=== PATIENT | female | born 1950 | race Caucasian/White ===

== ENCOUNTER 2017-07-17 07:33 | Day surgery (SDC) | payer MEDICARE, OTHER, SELFPAY ==
[2017-07-17] VITALS (7 sets, daily range): BP systolic 95–133; BP diastolic 59–76; PULSE 70–99; RESP 16–18; TEMP 36.8–36.9; O2SAT 92–100; BMI 25.4
--- NOTE | 2017-07-17 08:47 | PCM.HP.STD ---
Problem List (1) Screening for intestinal cancer Status: Acute History of Present Illness Date of Admission: 07/17/17 The patient is a 67 year old F screening for intestinal cancer. She has a history of vasovagal syncope. In fact she fainted this morning when the IV was being placed. She denies chest pain or shortness of breath. She denies abdominal pain no bright red blood per rectum or melena. Her most recent colonoscopy was approximately 10 years ago. He has not had any unusual weight loss. Past Medical History Allergies bupropion [From Wellbutrin] Allergy (Verified 07/16/17 15:50) Other MINI SEIZURES, WIEGHT LOSS, ANXIETY Home Medications: Ambulatory Orders Medication Instructions Recorded Ascorbic Acid [Vitamin C] 500 mg PO DAILY 07/16/17 Citalopram [Celexa] 20 mg PO DAILY 07/16/17 Lamotrigine [Lamictal Xr] 100 mg PO DAILY 07/16/17 Melatonin 5 mg PO QHS 07/16/17 Smoking Status: Former smoker Review of Systems Constitutional: Denies: Anorexia Eyes: Denies: Blurred vision HEENT: Denies: Difficulty Hearing Cardiovascular: Denies: Chest Pain Respiratory: Denies: Cough Gastrointestinal: Denies: Abdominal Pain Genitourinary: Denies: Dysuria Musculoskeletal: Denies: Leg Pain Neurological: Reports: - - Vasovagal syncope very common VTE Information - Inpt Only VTE Present on Admission: No Patient Problems: Active and Suspected Problems Screening for intestinal cancer (Acute) - Physical Exam General: Alert, Oriented x3 HEENT: Atraumatic Oral: Moist Mucosa Neck: Supple Lungs: Clear to auscultation Cardiovascular: Regular rate Abdomen: Bowel Sounds Present, Non Tender Extremities: No clubbing Musculoskeletal: No Tenderness to Palpation of Joints or Extremities Neurological: Cranial nerves II-XII grossly intact Vital Signs Temp Pulse Resp BP Pulse Ox 98.2 F 99 18 133/76 H 100 07/17/17 07:49 07/17/17 07:49 07/17/17 07:49 07/17/17 07:49 07/17/17 07:49 Oxygen Delivery Method Room Air Weight: 130 lb Body Mass Index (BMI) 25.4 Assessment/Plan Active and Suspected Problems Screening for intestinal cancer (Acute) I have discussed with the patient plans for a colonoscopy with possible biopsy or polypectomy is indicated. She is aware of the technique, benefits, risks, alternatives. We will proceed at her discretion. Capo Mcneal M.D., F.A.C.S.
--- NOTE | 2017-07-17 09:12 | PCM.OPRPT ---
Problem List (1) Screening for intestinal cancer Status: Acute Report of Operation Date of Procedure: 07/17/17 Pre-Operative Diagnosis: Screening for intestinal cancer Post-Operative Diagnosis: Normal colonoscopy Surgery/Procedure Performed:: Colonoscopy Description of Surgical Findings:: Time out and informed consent was obtained. Because of the patient's vasovagal history she was provided with extra IV fluid throughout the procedure totaling 2 L. Timeout and informed consent was obtained. 100 mg of Demerol and 3.5 mg of Versed were given as intravenous sedation. Digital rectal exam performed. Some mild hemorrhoidal changes noted. Normal tone. No mass lesions. Flexible colonoscope inserted the rectum advanced through a tortuous sigmoid colon. With transabdominal pressure after unwinding the sigmoid loop I was able to get the scope to go to the ascending colon and then gently to the cecum. Bowel prep was very good. The cecum ileocecal valve area was nicely achieved. The scope was carefully withdrawn from the ascending colon transverse colon descending colon and sigmoid colon. No mucosal abnormalities were identified. The scope was retroflexed within the rectum. The mild hemorrhoidal changes noted. Excess fluid and air was aspirated free. The procedure was completed. The patient tolerated the procedure well. Vital signs remained steady throughout. Impression Normal colonoscopy Next screening exam recommended in 10 years. Cc: Dr. Pelayo Medications given at 0853. Procedure started at 0856. Cecum reached at 0903.3. Procedure completed at 0909.46 Capo Mcneal M.D., F.A.C.S. Type of Anesthesia:: IV Sedation
== END 2017-07-17 11:02 | disposition home or self-care (01) ==
LOC: EN 07:36 → AC 07:36
PROVIDERS: Family Provider Family Medicine; PCP Family Medicine; Visit Provider Surgery
PROC: 0DJD8ZZ Inspection of Lower Intestinal Tract, Via Natural or Artificial Opening Endoscopic (ICD-10-PCS; CPT 45378; principal; 2017-07-17 08:40)
DX: Z12.11 Encounter for screening for malignant neoplasm of colon (principal); R55 Syncope and collapse; Z79.899 Other long term (current) drug therapy; Z87.891 Personal history of nicotine dependence
CPT/HCPCS: G0121; J7120

== ENCOUNTER 2018-04-20 05:39 | Day surgery (SDC) | payer MEDICARE, OTHER, SELFPAY ==
[2018-04-20] VITALS (10 sets, daily range): BP systolic 94–149; BP diastolic 61–106; PULSE 62–67; RESP 14–16; TEMP 36–36.3; O2SAT 94–100; BMI 26.2
--- NOTE | 2018-04-20 | IMM_PTH ---
PATIENT: BRANDEN KATE LOC: EN U#:[id number] AGE/SX: 68/F ROOM: RE04/20/[address]: Dr. Capo Mcneal MD : 1950 BED: DIS: 04/20/2018 SPEC #: [id number] RECD: 04/21/18 11:17 STATUS: CARLOS REQ #: [id number] JASBIR: 04/20/18 00:[address]: Capo Mcneal DEPT: IMMUNOHISTOCHEMISTRY RECD BY: Luana Malloy ENTERED: 04/21/18 11:17 SP TYPE: IMMUNO OTHR DR: Dr. Renate Pelayo MD Tissues: A - Stomach, NOS Procedures: H Pylori (initial) PHYSICIAN & INSTITUTION [place] [id number] SPECIMEN INFORMATION: Tissue Source: A - Antral biopsy Clinical Info: GERD, esophagitis Specimen Number: [id number] CPT code: 83582 METHODOLOGY: Deparaffinized sections of prefer/formalin-fixed tissue or PAP/DQ stained slides are incubated with monoclonal/polyclonal antibodies/oligonucleotide probes. Localization is made via biotin free immunoperoxidase method. Appropriate controls are performed and reacted as expected. Results on target cell population are indicated in the following table: RESULTS: ANTIBODY / CLONE RESULT Block A H Pylori (polyclonal) Negative These tests were developed and their performance characteristics determined by [facility]. They may not have been cleared or approved by the U.S. Food and Drug Administration. The FDA has determined that such clearance or approval is not necessary. INTERPRETATION: A. Antral biopsy: Negative for Helicobacter pylori organisms. SJ:maranda 04/21/18
--- NOTE | 2018-04-20 | GASB_PTH ---
PATIENT: BRANDEN KATE LOC: EN U#:[id number] AGE/SX: 68/F ROOM: RE04/20/[address]: Dr. Capo Mcneal MD : 1950 BED: DIS: 04/20/2018 SPEC #: [id number] RECD: 04/20/18 11:08 STATUS: CARLOS JELENA #: [id number] JASBIR: 04/20/18 00:[address]: Capo Mcneal DEPT: SURGICAL PATHOLOGY RECD BY: Soy Echols ENTERED: 04/20/18 11:09 SP TYPE: Gastric Bx OTHR DR: Dr. Renate Pelayo MD Tissues: A - Gastric mucous membrane B - Esophageal mucous membrane Procedures: Surgery Specimen Level IV HEADER OPERATION: EGD - PH probe (MOD) PRE-OP DIAGNOSIS: GERD, esophagitis TISSUE SUBMITTED: A - Antral biopsy for histo and H. pylori, B - Distal esophagus biopsy MICROSCOPIC DIAGNOSIS A. Antral biopsy: Mild gastritis. See microscopic description and comment. B. Distal esophageal biopsy: Fragments of squamous mucosa with chronic inflammation. CHARO:carole 04/21/18 COMMENT A. The results of immunohistochemistry for Helicobacter pylori will be reported separately ([id number]). MICROSCOPIC DESCRIPTION Slides are reviewed. A. The specimen shows fragments of gastric mucosa with chronic inflammatory cell infiltrates in the lamina propria consisting of lymphocytes and plasma cells, consistent with mild chronic gastritis. GROSS DESCRIPTION A - Received in fixative is one container labeled with the patient's name and designated antral biopsy. The specimen consists of one irregular fragment of light quinn soft tissue that measures 0.4 x 0.3 x 0.1 cm. The specimen is totally submitted in one cassette. B - Received in fixative is one container labeled with the patient's name and designated distal esophageal biopsy. The specimen consists of multiple irregular fragments of light quinn soft tissue that in aggregate measure 0.8 x 0.2 x 0.1 cm. The specimen is totally submitted in one cassette. / CHARO:carole 04/20/18 TC:3 CPT: 44391 x2
--- NOTE | 2018-04-20 07:40 | OP.ENDO_ITS ---
Patient Name: Allie Thomason Procedure Date: 04/20/2018 7:12 AM Date of : 1950 Age: 68 Procedure: Upper GI endoscopy Indications: Suspected gastro-esophageal reflux disease Providers: Capo Mcneal MD Referring MD: Capo Mcneal MD Medicines: Midazolam 3 mg IV, Meperidine 75 mg IV Complications: No immediate complications. Procedure: Pre-Anesthesia Assessment: - Prior to the procedure, a History and Physical was performed, and patient medications and allergies were reviewed. The patient's tolerance of previous anesthesia was also reviewed. The risks and benefits of the procedure and the sedation options and risks were discussed with the patient. All questions were answered, and informed consent was obtained. Prior Anticoagulants: The patient has taken no previous anticoagulant or antiplatelet agents. ASA Grade Assessment: II - A patient with mild systemic disease. After reviewing the risks and benefits, the patient was deemed in satisfactory condition to undergo the procedure. After obtaining informed consent, the endoscope was passed under direct vision. Throughout the procedure, the patient's blood pressure, pulse, and oxygen saturations were monitored continuously. The gastroscope was introduced through the mouth, and advanced to the second part of duodenum. The upper GI endoscopy was accomplished without difficulty. The patient tolerated the procedure well. Moderate Sedation: Moderate (conscious) sedation was personally administered by the endoscopist. The following parameters were monitored: oxygen saturation, heart rate, blood pressure, and response to care. Total physician intraservice time was 15 minutes. Scope In: 7:22:03 AM Scope Out: 7:31:25 AM Total Procedure Duration Time 0 hours 9 minutes 22 seconds Findings: LA Grade A (one or more mucosal breaks less than 5 mm, not extending between tops of 2 mucosal folds) esophagitis with no bleeding was found 35 cm from the incisors. Biopsies were taken with a cold forceps for histology. The Z-line was regular and was found 35 cm from the incisors. A medium-sized hiatal hernia was present. The entire examined stomach was normal. Biopsies were taken with a cold forceps for histology. The examined duodenum was normal. A medium-sized hiatal hernia was present. The RITTER capsule with delivery system was introduced through the mouth and advanced into the esophagus, such that the RITTER pH capsule was positioned 29 cm from the incisors, which was 6 cm proximal to the GE junction. The RITTER pH capsule was then deployed and attached to the esophageal mucosa. The delivery system was then withdrawn. Endoscopy was utilized for probe placement and diagnostic evaluation. Impression: - LA Grade A reflux esophagitis. Biopsied. - Z-line regular, 35 cm from the incisors Successfully placed Ritter probe. - Medium-sized hiatal hernia. - Normal stomach. Biopsied at the antrum - Normal examined duodenum. Recommendation: - Discharge patient to home. - Resume previous diet. - Continue present medications. - Return to my office in 1 week. Procedure Code(s): --- Professional --- 51734, Esophagogastroduodenoscopy, flexible, transoral; with biopsy, single or multiple 78160, 59, Moderate sedation services provided by the same physician or other qualified health resident care technician performing the diagnostic or therapeutic service that the sedation supports, requiring the presence of an independent trained observer to assist in the monitoring of the patient's level of consciousness and physiological status; initial 15 minutes of intraservice time, patient age 5 years or older Diagnosis Code(s): --- Professional --- K21.0, Gastro-esophageal reflux disease with esophagitis K44.9, Diaphragmatic hernia without obstruction or gangrene CPT copyright 2017 [employer]. All rights reserved. The codes documented in this report are preliminary and upon sports umpire review may be revised to meet current compliance requirements. Capo Mcneal MD 04/20/2018 7:39:30 AM This report has been signed electronically. Number of Addenda: 0 Note Initiated On: 04/20/2018 7:12 AM
== END 2018-04-20 08:45 | disposition home or self-care (01) ==
LOC: EN 05:40 → AC 05:41
PROVIDERS: Family Provider Family Medicine; PCP Family Medicine; Referring Provider Surgery; Visit Provider Surgery
PROC: (CPT 43235; principal; 2018-04-20 06:45)
DX: K21.0 Gastro-esophageal reflux disease with esophagitis (principal); K29.70 Gastritis, unspecified, without bleeding; K44.9 Diaphragmatic hernia without obstruction or gangrene; F41.9 Anxiety disorder, unspecified; F32.9 Major depressive disorder, single episode, unspecified; M19.90 Unspecified osteoarthritis, unspecified site; Z87.19 Personal history of other diseases of the digestive system; Z78.0 Asymptomatic menopausal state; Z79.899 Other long term (current) drug therapy; Z87.891 Personal history of nicotine dependence
CPT/HCPCS: 43239; 91035; 88305; 88342; 99152; 99153; J7040; J7120

== ENCOUNTER 2018-05-11 07:55 | Day surgery (SDC) | payer MEDICARE, OTHER, SELFPAY ==
[2018-05-11 09:08] VITALS: BP 139/92; PULSE 71; RESP 16; O2SAT 100
== END 2018-05-11 09:03 | disposition home or self-care (01) ==
LOC: EN 07:56
PROVIDERS: Family Provider Family Medicine; PCP Family Medicine; Referring Provider Surgery; Visit Provider Surgery
PROC: F00ZJWZ Instrumental Swallowing and Oral Function Assessment using Swallowing Equipment (ICD-10-PCS; CPT 43235; principal; 2018-05-11 07:55)
DX: K21.9 Gastro-esophageal reflux disease without esophagitis (principal)
CPT/HCPCS: 91010; 91013

== ENCOUNTER 2018-07-12 10:00 | Observation (INO) | payer MEDICARE, OTHER, SELFPAY ==
[2018-07-06 13:14] VITALS: BMI 26.5
--- NOTE | 2018-07-06 15:18 | EKG12_ITS ---
Test Reason : PRE OP Blood Pressure : / mmHG Vent. Rate : 072 BPM Atrial Rate : 072 BPM P-R Int : 156 ms QRS Dur : 070 ms QT Int : 396 ms P-R-T Axes : 037 035 057 degrees QTc Int : 433 ms Normal sinus rhythm Normal ECG Confirmed by EDISON DELVALLE, SAUL ([id number]), content editor SHARLENE MELENDEZ ([id number]) on 07/07/2018 1:55:29 PM Referred By: Capo Mcneal Confirmed By:SAUL HOGAN MD
[2018-07-12] VITALS (15 sets, daily range): BP systolic 124–154; BP diastolic 80–103; PULSE 74–104; RESP 14–18; TEMP 35.8–37.1; O2SAT 92–98; BMI 26.7
--- NOTE | 2018-07-12 06:59 | DCINST_ITS ---
<Capo Mcneal - Last Filed: 07/12/18 06:58> Discharge Diet: Light diet - advance as tolerated - if you have questions about your diet instructions, please talk to you doctor. Discharge Activity: May Not Drive - for 3-5days or while taking narcotic pain medicine. May shower in (days): 1 Lifting Restrictions: 10 pounds Call your doctor if your incision/area has: Continuous Slow Oozing, Sudden Increased Bleeding, Increased Pain/ Swelling, Increased Redness, Foul Smelling Discharge Call your doctor if you observe: Fever of 101 or Higher Suture Line Care: Avoid Pulling/Pushing, Avoid Pinching/Bending Additional Dressing/Incision Instructions:: Change or remove dressing in 4 days. Leave steri-strips in place for 1 week. Allergies/Adverse Reactions: Allergies bupropion [From Wellbutrin] Adverse Reaction (Intermediate, Verified 07/06/18 14:26) tachycardia MINI SEIZURES, WIEGHT LOSS, ANXIETY Medications to take at Discharge multivitamin tablet 1 tab PO DAILY 03/31/18 Estradiol [Estrace Vaginal Cream] 1 gm VAGINAL Q7D 07/06/18 venlafaxine 37.5 mg tablet 37.5 mg PO DAILY tab 07/06/18 Orders to be completed after discharge: 12 Lead EKG [[facility]] Time Frame: 07/06/18, Facility: [facility], Location: Cardiovascular Services Primary Care Physician: Renate Pelayo MD [Primary Care Provider] - Test Results: Test results from this visit will be discussed in further detail at your follow- up appointment, if applicable. Please Follow Up With: Capo Mcneal MD - [phone] When: Call to make an appointment to be seen in about 10 days. <Bethany Meyer - Last Filed: 07/13/18 09:29> Test Results: Test results from this visit will be discussed in further detail at your follow- up appointment, if applicable.
[2018-07-12] MEDS: Cefazolin 2 GM in 0.9% Normal Saline 100 ML IV (07:18)
[2018-07-12] MEDS: Bupivacaine Mpf 0.5% 30 ML VIAL (10:02)
--- NOTE | 2018-07-12 10:04 | PCM.OPRPT ---
Problem List (1) GERD (gastroesophageal reflux disease) Status: Acute Qualifiers: Esophagitis presence: with esophagitis Qualified Code(s): K21.0 - Gastro-esophageal reflux disease with esophagitis Report of Operation Date of Procedure: 07/12/18 Pre-Operative Diagnosis: Hiatal hernia and gastroesophageal reflux disease with esophagitis Post-Operative Diagnosis: Same Surgery/Procedure Performed:: Laparoscopic repair of hiatal hernia with Nichole fundoplication. Intraoperative esophagogastroduodenoscopy Description of Surgical Findings:: Timeout and informed consent was obtained. 68-year-old female was taken to the operating room. Placed supine on the table. Underwent general endotracheal intubation anesthesia. She was then placed in low lithotomy position. Buttock roll was placed. The abdomen sterilely prepped and draped with ChloraPrep. Ioban drape was used to facilitate management of the drapes. The patient received 2 g of Ancef intravenously. Superior and slightly to the right umbilicus 0.5% Marcaine was instilled then using a 5 mm direct viewing Visiport access was gained to the abdomen. The abdomen was insufflated CO2 to a pressure of 10 mmHg pressure. The abdomen is inspected no evidence of any trocar injuries no evidence of any superficial abnormalities. Tell me trocar was placed in the left epigastric area 2 more 5 in the left lateral upper quadrant and additional 5 in the right mid clavicular line upper quadrant. Liver retractor was placed to the right sided port elevating the left lobe of the liver. The patient was placed in reverse Trendelenburg position. The epiphrenic ligament was identified. A scalpel was used to incise tissues overlying the epiphrenic ligament making sure that the peritoneum stayed intact with both the right and left stephan. Blunt dissection was used to identify the posterior aspect of the esophagus small hiatal hernia noted. The fundus of the stomach unfortunately was densely adherent to the spleen and to the left hemidiaphragm. This had to be tediously dissected free with blunt dissection and harmonic scalpel dissection in order to transect the short gastrics were appropriate. Having freed the stomach I could then retracted and identify the left stephan incise the tissue there. I then was able to get circumferential control of the esophagus placed a Lavonne drain. The posterior vagus nerve was protected with the esophagus and stomach. I then performed circumferential dissection into the mediastinum completely releasing the distal esophagus. There was a pigmented lymph node anteriorly. This is immediately adjacent to the esophagus I did not interfere with that location. I then with Harper scalpel dissection complete fraying of the lower 6-8 cm of esophagus. [place] that I had good mobilization. I then used 0 Ethibond sutures with Dacron pledgets and approximated the crura. 4 sutures were required. [place] that I had nice approximation but not too snug. That appeared to be nicely and intact. To have a good closure. I was then able to easily grasp the fundus of the stomach checked for tension and used a 0 Ethibond to do the apical suture which included the fundus of the stomach the epiphrenic ligament of the diaphragm the anterior wall of the esophagus and then the wrapped portion of the stomach. Good positioning was achieved securing that to the diaphragm into the esophagus. An additional suture was then used to finish the fundoplication with both pedroza of the stomach as well as the anterior wall of the esophagus. Good positioning was felt to been achieved hemostasis was nicely intact. I then placed a flexible gastroscope down the esophageal inlet. Carefully inspected the operative area water was instilled in the abdomen there was absolutely no air leak. The EG junction was now noted to be nicely below the level of the diaphragm. The wrap appeared to be nicely intact was able to retroflex the scope and image the quite nicely wrapped fundus. The remainder the stomach was noted to be quite appropriate again air leak was checked no evidence of any problems. Excess fluid and air was aspirated free of excess air from the stomach was aspirated free the scope was withdrawn. Trochars removed under visualization after the 10 mm trocar was closed with a [id number] suture of 0 Vicryl using a GraNee needle. The abdomen was allowed to deflate his CO2 skin edges approximated with interrupted 4 Monocryl subdermal stitches Steri-Strips Telfa and OpSite dressings applied. It is of note that all skin sites were anesthetized with 0.5% Marcaine and a total of 30 cc was used throughout the procedure. Specimens none. Drains none. Blood loss minimal. She tolerated the procedure well and was taken to the recovery area in satisfactory condition without apparent complication. Capo Mcneal M.D., F.A.C.S. Type of Anesthesia:: General Anesthesiologist: Jeff Bush
--- NOTE | 2018-07-12 10:12 | OP.PCM_ITS ---
Problem List (1) GERD (gastroesophageal reflux disease) Status: Acute Qualifiers: Esophagitis presence: with esophagitis Qualified Code(s): K21.0 - Gastro- esophageal reflux disease with esophagitis Report of Operation Date of Procedure: 07/12/18 Pre-Operative Diagnosis: Hiatal hernia and gastroesophageal reflux disease with esophagitis Post-Operative Diagnosis: Same Surgery/Procedure Performed:: Laparoscopic repair of hiatal hernia with Nichole fundoplication. Intraoperative esophagogastroduodenoscopy Description of Surgical Findings:: Timeout and informed consent was obtained. 68-year-old female was taken to the operating room. Placed supine on the table. Underwent general endotracheal intubation anesthesia. She was then placed in low lithotomy position. Buttock roll was placed. The abdomen sterilely prepped and draped with ChloraPrep. Ioban drape was used to facilitate management of the drapes. The patient r eceived 2 g of Ancef intravenously. Superior and slightly to the right umbilicus 0.5% Marcaine was instilled then using a 5 mm direct viewing Visiport access was gained to the abdomen. The abdomen was insufflated CO2 to a pressure of 10 mmHg pressure. The abdomen is inspected no evidence of any trocar injuries no evidence of any superficial abnormalities. Tell me trocar was placed in the left epigastric area 2 more 5 in the left lateral upper quadrant and additional 5 in the right mid clavicular line upper quadrant. Liver retractor was placed to the right sided port elevating the left lobe of the liver. The patient was placed in reverse Trendelenburg position. The epiphrenic ligament was identified. A scalpel was used to incise tissues overlying the epiphrenic ligament making sure that the peritoneum stayed intact with both the right and left stephan. Blunt dissection was used to identify the posterior aspect of the esophagus small hiatal hernia noted. The fundus of the stomach unfortunately was densely adherent to the spleen and to the left hemidiaphragm. This had to be tediously dissected free with blunt dissection and harmonic scalpel dissection in order to transect the short gastrics were appropriate. Having freed the stomach I could then retracted and identify the left stephan incise the tissue there. I then was able to get circumferential control of the esophagus placed a Lavonne drain. The posterior vagus nerve was protected with the esophagus and stomach. I then performed circumferential dissection into the mediastinum completely releasing the distal esophagus. There was a pigmented lymph node anteriorly. This is immediately adjacent to the esophagus I did not interfere with that location. I then with Harper scalpel dissection complete fraying of the lower 6-8 cm of esophagus. [place] that I had good mobilization. I then used 0 Ethibond sutures with Dacron pledgets and approximated the crura. 4 sutures were required. [place] that I had nice approximation but not too snug. That appeared to be nicely and intact. To have a good closure. I was then able to easily grasp the fundus of the stomach checked for tension and used a 0 Ethibond to do the apical suture which included the fundus of the stomach the epiphrenic ligament of the diaphragm the anterior wall of the esophagus and then the wrapped portion of the stomach. Good positioning was achieved securing that to the diaphragm into the esophagus. An additional suture was then used to finish the fundoplication with both pedroza of the stomach as well as the anterior wall of the esophagus. Good positioning was felt to been achieved hemostasis was nicely intact. I then placed a flexible gastroscope down the esophageal inlet. Carefully inspected the operative area water was instilled in the abdomen there was absolutely no air leak. The EG junction was now noted to be nicely below the level of the diaphragm. The wrap appeared to be nicely intact was able to retroflex the scope and image the quite nicely wrapped fundus. The remainder the stomach was noted to be quite appropriate again air leak was checked no evidence of any problems. Excess fluid and air was aspirated free of excess air from the stomach was aspirated free the scope was withdrawn. Trochars removed under visualization after the 10 mm trocar was closed with a [id number] suture of 0 Vicryl using a GraNee needle. The abdomen was allowed to deflate his CO2 skin edges approximated with interrupted 4 Monocryl subdermal stitches Steri-Strips Telfa and OpSite dressings applied. It is of note that all skin sites were anesthetized with 0.5% Marcaine and a total of 30 cc was used throughout the procedure. Specimens none. Drains none. Blood loss minimal. She tolerated the procedure well and was taken to the recovery area in satisfactory condition without apparent complication. Capo Mcneal M.D., F.A.C.S. Type of Anesthesia:: General Anesthesiologist: Jeff Bush
[2018-07-12] MEDS: Lactated Ringers 1,000 ML 50 ML IV ×2 (11:13→16:24)
--- NOTE | 2018-07-12 13:54 | NURSING ---
called to room by staff emergancy alarm, primary RN at bedside had patient in bed stated she had went unconscious when attempted to get up. pt placed in reverse transd. position. pt remains unresponsive to verbal commands. FERRYBOAT OPERATOR CABLE called. crashcart to bedside. placed on tele monitor. accucheck obtained. see FERRYBOAT OPERATOR CABLE form.
[2018-07-12] MEDS: Ondansetron 4 MG/2 ML Vial IV (14:09)
--- NOTE | 2018-07-12 14:13 | NURSING ---
at 1352 medicated pt for nausea and was assisting pt to sit on edge of bed and to use BSC when she c/o feeling lightheaded. pt laid back in bed and then became unresponsive. called for staff assist and CARRIAGE FEEDER was called. pt has history of vasovagal responses following surgery. notified Dr Mcneal who asked for tele monitoring but declined hospitalist consult. he will have a physician physiotherapist's assistant return this evening to reassess patient. pt slowly becoming more responsive at this time and is able to follow directions, motor skills intact, speech clear but slow, pupils round and reactive. A&Ox3. pt requested to be repositioned to right side and left without blankets to cool down. will monitor closely
[2018-07-12 14:51] LABS: Bedside Glucose 159 mg/dL (70-110)
[2018-07-12 16:02] LABS: Absolute Lymphocyte Count 0.47 X10^3/ul (0.83-4.51); Absolute Neutrophil Count 7.7 X10^3/uL (2.0-7.7); Basophil# 0.01 X10^3/uL; Basophil% 0.1 % (0-1); Hematocrit 41.1 % (37-47); Hemoglobin 13.6 g/dl (12.0-15.0); Lymphocyte # 0.47 X10^3/ul (4.0); Lymphocyte % 5.6 % (19-41); Mean Corp Hgb Conc 33.1 g/gl (32-36); Mean Corpuscular Hgb 29.2 pg (27.0-32.0); Mean Corpuscular Volume 88.2 fL (81-99); Mean Platelet Vol. 9.8 fl (6.2-12.0); Monocyte# 0.25 X10^3/uL; Neutrophil # 7.69 X10^3/uL (2.7-7.7); Neutrophil % 91.2 % (47-70); Platelet Count 213 K/mm3 (150-450); RBC Distribution Width CV 12.6 % (11.6-14.6); RBC Distribution Width SD 40.1 fl (35.1-43.9); Red Blood Count 4.66 M/mm3 (4.2-5.4); White Blood Count 8.4 K/mm3 (4.4-11.0)
[2018-07-12 16:04] LABS: Differential Indicated SCAN CRITERIA MET; POSITIVE COUNT NO; POSITIVE DIFFERENTIAL YES; POSITIVE MORPHOLOGY NO
[2018-07-12 16:35] LABS: Differential Comment SCANNED
--- NOTE | 2018-07-12 16:43 | CHAPLAIN ---
Type of Pastoral Visit ___ Initial Visit ___ Follow-up Visit ___ On-call Visit ___ General Patient Visit ___ Spiritual Assessment ___ Family Conference ___ Bereavement _x__ Rapid Response ___ Code Blue ___ Other (describe below) Pastoral Care Referral From ___ Patient ___ Family ___ Nurse ___ Physician ___ Steward/Stewardess Chief Cargo Vessel ___ Web Developer Programmer _x__ Other (describe below) Sacrament/Intervention _x__ Active listening ___ Anointing ___ Orthodox ___ Bereavement ___ Communion ___ Hilda exploration ___ ___ Life review ___ Prayer ___ Reconciliation ___ Sacrament of Sick _x__ Supportive presence ___ Wedding ___ Other (describe below) Pastoral Comments met with spouse immediately following intervention by medical team at ; offered support; spouse requested prayer
--- NOTE | 2018-07-12 16:50 | NURSING ---
pt requested to use BSC. c/o severe nausea but denied light-headedness or dizziness. slowly raised head of bed. pt tolerated well. upon transfer to BS though, pt attempted to vasovagal. with prompting, she retained attention and was able to void and return to bed. able to follow commands and state her name, but very lethargic. notified Dr Mcneal again, explained change to pt condition and informed him of pt nausea. will continue monitor.
--- NOTE | 2018-07-12 17:53 | PCM.PN.BLA ---
Progress Note Vasovagal x 2 Fluid bolus given and CBC checked and normal Pt c/o nausea not resolved with zofran but she has been sedated with each vagal episode She wonders whether she is having a migraine but states she doesnt take any med when she does Wonders whether it is coffee caffeine withdrawal I offered additional antiemetic and she declined Will increase IVF and observe Abdomen is currently benign.
[2018-07-13] MEDS: Lactated Ringers 1,000 ML 100 ML IV (00:24)
[2018-07-13] MEDS: Acetaminophen 325 MG Tablet 650 MG PO (00:24)
[2018-07-13 00:28] VITALS: BP 140/89; PULSE 100; PULSE 101; RESP 16; TEMP 36.6; O2SAT 94
[2018-07-13 04:00] VITALS: BP 130/77; PULSE 113; RESP 16; TEMP 37.2; O2SAT 98
[2018-07-13 04:05] VITALS: PULSE 96
[2018-07-13 05:52] LABS: Absolute Lymphocyte Count 1.34 X10^3/ul (0.83-4.51); Absolute Neutrophil Count 8.7 X10^3/uL (2.0-7.7); Basophil# 0.02 X10^3/uL; Basophil% 0.2 % (0-1); Eosinophil# 0.02 X10^3/uL; Eosinophils% 0.2 % (0-5); Hematocrit 40.2 % (37-47); Hemoglobin 13.5 g/dl (12.0-15.0); Lymphocyte # 1.34 X10^3/ul (4.0); Lymphocyte % 12.2 % (19-41); Mean Corp Hgb Conc 33.6 g/gl (32-36); Mean Corpuscular Hgb 29.3 pg (27.0-32.0); Mean Corpuscular Volume 87.2 fL (81-99); Mean Platelet Vol. 9.8 fl (6.2-12.0); Monocyte# 0.85 X10^3/uL; Monocyte% 7.8 % (0-10); Neutrophil % 79.4 % (47-70); Platelet Count 243 K/mm3 (150-450); RBC Distribution Width CV 12.4 % (11.6-14.6); RBC Distribution Width SD 38.8 fl (35.1-43.9); Red Blood Count 4.61 M/mm3 (4.2-5.4)
[2018-07-13 06:04] LABS: POSITIVE COUNT NO; POSITIVE DIFFERENTIAL NO; POSITIVE MORPHOLOGY NO
--- NOTE | 2018-07-13 06:05 | PCM.PN.SRG ---
Subjective: Pt feels much better No nausea GIBSON has resolved No significant abdominal pain - Physical Exam General: Alert, Oriented x3, Cooperative, No apparent distress Abdomen: Soft, Non Tender, Hypoactive Bowel Sounds, Distended Vital Signs Temp Pulse Resp BP Pulse Ox 99 F 96 16 130/77 H 98 07/13/18 04:00 07/13/18 04:05 07/13/18 04:00 07/13/18 04:00 07/13/18 04:00 Oxygen Flow Rate (L/min) 2 Oxygen Delivery Method Nasal Cannula Weight: 136 lb 15.994 oz Body Mass Index (BMI) 26.7 Intake and Output for Last 24 Hours 07/11/18 07/12/18 07/13/18 23:59 23:59 23:59 Intake Total 2888 / 2888 706 / 706 Output Total 800 / 800 925 / 925 Balance 2087 / 2087 -219 / -219 Laboratory Tests Past 24 Hrs 07/12/18 07/13/18 07/13/18 15:48 05:18 05:18 WBC 8.4 11.0 RBC 4.66 4.61 Hgb 13.6 13.5 Hct 41.1 40.2 MCV 88.2 87.2 MCH 29.2 29.3 MCHC 33.1 33.6 RDW 12.6 12.4 RDW Differential 40.1 38.8 Plt Count 213 243 MPV 9.8 9.8 Immature Gran % (Auto) 0.100 0.200 Neut % (Auto) 91.2 H 79.4 H Lymph % (Auto) 5.6 L 12.2 L [place] % (Auto) 3.0 7.8 Eos % (Auto) 0.0 0.2 Baso % (Auto) 0.1 0.2 Absolute Neuts (auto) 7.7 8.7 H Absolute Lymphs (auto) 0.47 L 1.34 Total Counted Not Reportable Not Reportable Differential Comment SCANNED Sodium Pending Potassium Pending Chloride Pending Carbon Dioxide Pending Anion Gap Pending BUN Pending Creatinine Pending Est GFR (MDRD) Af Amer Pending Est GFR (MDRD) Non-Af Pending BUN/Creatinine Ratio Pending Glucose Pending Calcium Pending POC Glucose 07/12/18 13:55 POC Glucose 159 H Medical Necessity - Tobacco Use Smoking Status: Former smoker Assessment/Plan All Active Problems (Last Reviewed 07/06/18 @ 13:14 by Taylor Cervantes) GERD (gastroesophageal reflux disease) (Acute) Screening for intestinal cancer (Acute) Will start fulls Mobilize pt Hopeful discharge mid day
[2018-07-13] MEDS: Lactated Ringers 1,000 ML 30 ML IV (06:09)
[2018-07-13 06:15] LABS: Anion Gap 11 (5-15); BUN 9 mg/dL (7-18); BUN/Creat Ratio 9.8 RATIO (10-20); Calcium,Total 8.6 mg/dL (8.5-10.1); Chloride 106 mmol/L (98-107); Creatinine, Serum 0.92 mg/dL (0.55-1.02); EST Glomerular Filtration Rate 64 mL/min (>60); Est Glom Filt Rate - Afr Amer 78 mL/min (>60); Estimated Creatinine Clearance 42.04 ml/min; Glucose 130 mg/dL (74-106); Potassium 3.6 mmol/L (3.5-5.1); Sodium Level 141 mmol/L (136-145)
--- NOTE | 2018-07-13 06:48 | NURSING ---
did well getting up to BSC
[2018-07-13 07:20] VITALS: PULSE 85
[2018-07-13 08:05] VITALS: BP 126/70; PULSE 93; RESP 18; TEMP 36.9; O2SAT 99
[2018-07-13] MEDS: Venlafaxine XR 37.5 MG Capsule PO (08:10)
[2018-07-13] MEDS: Enoxaparin 40 MG/0.4 ML Syringe SC (08:11)
[2018-07-13 13:43] VITALS: BP 118/65; PULSE 83; PULSE 85; RESP 16; TEMP 37.1; O2SAT 96
--- OUTSIDE RECORDS SUMMARY | 2018-09-13 14:17 | XMS RPT_ITS ---
:1950 Author Organization [place] Support Name Relationship Address Phone R Unavailable Unavailable Unavailable DEBORAH THOMASON Unavailable [address] + [place] [address] CAROLINA THOMASON Unavailable [address] + [place] [address] R Unavailable Unavailable Unavailable DEBORAH THOMASON Unavailable [address] + [place] [address] CAROLINA THOMASON Unavailable [address] + [place] [address] R Unavailable Unavailable Unavailable DEBORAH THOMASON Unavailable [address] + [place] [address] CAROLINA THOMASON Unavailable [address] + [place] [address] R Unavailable Unavailable Unavailable DEBORAH THOMASON Unavailable [address] + [place] [address] CAROLINA THOMASON Unavailable [address] + [place] [address] R Unavailable Unavailable Unavailable DEBORAH THOMASON Unavailable [address] + [place] [address] CAROLINA THOMASON Unavailable [address] + [place] [address] R Unavailable Unavailable Unavailable DEBORAH THOMASON Unavailable [address] + [place] [address] CAROLINA THOMASON Unavailable . + [place] [address] R Unavailable Unavailable Unavailable DEBORAH THOMASON Unavailable [address] + [place] [address] HUMBLE CAROLINA Unavailable Unavailable + R Unavailable Unavailable Unavailable HUMBLE DEBORAH Unavailable [address] + [place] [address] ZECAROLINA PÉREZ Unavailable [address] + [place] [address] R Unavailable Unavailable Unavailable R Unavailable Unavailable Unavailable HUMBLE DEBORAH Unavailable [address] + [place] [address] R Unavailable Unavailable Unavailable DEBORAH THOMASON Unavailable [address] + [place] [address] Care Team Providers Name Role Phone Fredis, Capo Attending Unavailable Cebul, Capo Referring Unavailable Jolliff, Renate Primary Care Unavailable Cebul, Capo Admitting Unavailable Bethany Meyer PA-C Attending Unavailable Jolliff, Renate Referring Unavailable Valencia, Lobo Attending Unavailable Jolliff, Renate Referring Unavailable Cebul, Capo Attending Unavailable Jolliff, Renate Referring Unavailable Cebul, Capo Attending Unavailable Cebul, Capo Referring Unavailable Jolliff, Renate Primary Care Unavailable Cebul, Capo Attending Unavailable Jolliff, Renate Referring Unavailable Calabrsamantha, Darrick Attending Unavailable Calabretta, Darrick Referring Unavailable Jolliff, Renate Primary Care Unavailable Cebul, Capo Attending Unavailable Cebul, Capo Attending Unavailable Jolliff, Renate Referring Unavailable Calabretta, Darrick Attending Unavailable Calabretta, Darrick Referring Unavailable PROBLEMS PROBLEMS DATE TYPE CONDITION / CODE ATTENDING STATUS SOURCE 05/31/2018 Unknown K21.9 - Paige Castillooster Gastro-esophageal [facility] reflux disease Hospital without esophagitis Repository / K21.9(ICD-10) 05/20/2018 Unknown K21.0 - Capo Mcneal Active [place] Gastro-esophageal [facility] reflux disease with Hospital esophagitis / Repository K21.0(ICD-10) 05/20/2018 Unknown K44.9 - Capo Mcneal Active [facility] hernia without Hospital obstruction or Repository gangrene / K44.9(ICD-10) PROCEDURES PROCEDURES No Procedure Records FoundRESULTS RESULTS DISCHARGE INSTRUCTION Observed: 07/14/2018 Status: F Source: [place] 7:12 AM [facility] REPOSITORY [facility] Medical Records Department [address] [place] [address] Instructions for Home/Discharge Instructions 07/12/18 0658 MR#: [id number] Acct: [id number] Name: ALLIE THOMASON Rep #: [id number] : 1950 68 From: Capo Mcneal MD PCP: Renate Pelayo MD Status: DIS ZENON <Capo Mcneal - Last Filed: 07/12/18 06:58> Discharge Diet: Light diet - advance as tolerated - if you have questions about your diet instructions, please talk to you doctor. Discharge Activity: May Not Drive - for 3-5days or while taking narcotic pain medicine. May shower in (days): 1 Lifting Restrictions: 10 pounds Call your doctor if your incision/area has: Continuous Slow Oozing, Sudden Increased Bleeding, Increased Pain/ Swelling, Increased Redness, Foul Smelling Discharge Call your doctor if you observe: Fever of 101 or Higher Suture Line Care: Avoid Pulling/Pushing, Avoid Pinching/Bending Additional Dressing/Incision Instructions:: Change or remove dressing in 4 days. Leave steri-strips in place for 1 week. Allergies/Adverse Reactions: Allergies bupropion [From Wellbutrin] Adverse Reaction (Intermediate, Verified 07/06/18 14:26) tachycardia MINI SEIZURES, WIEGHT LOSS, ANXIETY Medications to take at Discharge multivitamin tablet 1 tab PO DAILY 03/31/18 Estradiol [Estrace Vaginal Cream] 1 gm VAGINAL Q7D 07/06/18 venlafaxine 37.5 mg tablet 37.5 mg PO DAILY tab 07/06/18 Orders to be completed after discharge: 12 Lead EKG [CVS] Time Frame: 07/06/18, Facility: [facility], Location: Cardiovascular Services Primary Care Physician: Renate Pelayo MD [Primary Care Provider] - Test Results: Test results from this visit will be discussed in further detail at your follow-up appointment, if applicable. Please Follow Up With: Capo Mcneal MD - [phone] When: Call to make an appointment to be seen in about 10 days. <Bethany Meyer - Last Filed: 07/13/18 09:29> Test Results: Test results from this visit will be discussed in further detail at your follow-up appointment, if applicable. 07/14/18 0712 <Electronically signed by Capo Mcneal MD> Date Capo Mcneal MD CC: Renate Pelayo MD Signed CBC W/DIFF, AUTOMATED Collected: 07/13/2018 Status: F Source: [place] 5:18 AM [facility] REPOSITORY TYPE CODE TESTS RESULT OUT OF RANGE REFERENCE UNITS LAB L100.1000 4.4-11.0 K/mm3 Normal WBC 11.0 LAB L100.1200 4.2-5.4 M/mm3 Normal RBC 4.61 LAB L100.1300 12.0-15.0 g/dl Normal HGB 13.5 LAB L100.1400 37-47 % Normal HCT 40.2 LAB L100.1500 81-99 fL Normal MCV 87.2 LAB L100.1600 27.0-32.0 pg Normal MCH 29.3 LAB L100.1700 32-36 g/gl Normal MCHC 33.6 LAB L100.1810 11.6-14.6 % Normal RDW CV 12.4 LAB L100.1820 35.1-43.9 fl Normal RDW SD 38.8 LAB L100.1900 150-450 K/mm3 Normal PLT 243 LAB L100.2000 6.2-12.0 fl Normal MPV 9.8 LAB L100.2100 47-70 % High NEUT% 79.4 LAB L100.2200 19-41 % Low LY% 12.2 LAB L100.2300 0-10 % Normal MONO% 7.8 LAB L100.2400 0-5 % Normal EO% 0.2 LAB L100.2500 0-1 % Normal BASO% 0.2 LAB L100.2550 0.0-0.9 % Normal IM GRAN % 0.200 Result Comment: IG% - Immature Granulocytes (promyelocytes, myelocytes and metamyelocytes) > 1% indicates that a LEFT SHIFT is Present. LAB L100.2620 2.0-7.7 X10 3/uL High Absolute Neut 8.7 LAB L100.2720 0.83-4.51 X10 3/ul Normal Absolute Lymph 1.34 Performed By: #### L100.0100 #### [facility] [address] [place], [address] BASIC METABOLIC Collected: 07/13/2018 Status: F Source: [place] PROFILE (BMP) 5:18 AM [facility] REPOSITORY TYPE CODE TESTS RESULT OUT OF RANGE REFERENCE UNITS LAB L501.0100 74-106 mg/dL High GLU 130 Result Comment: Fasting Glucose result greater than or equal to 126 mg/dL suggests DIABETES MELLITUS per A.D.A. criteria. Please note revised GLUCOSE reference range effective 2017. LAB L501.1000 7-18 mg/dL Normal BUN 9 LAB L501.1100 0.55-1.02 mg/dL Normal CREAT,SERUM 0.92 Result Comment: The validity of the calculated GFR AND GFRAA in patients over 70 years has not been determined. Clinical correlation is essential. LAB L501.1110 >60 mL/min Normal EST GFR 64 Result Comment: Non- GFR Calc LAB L501.1115 >60 mL/min Normal EST GFR - AA 78 Result Comment: GFR Calc LAB L501.1255 ml/min Normal Estimated CRCL 42.04 LAB L501.1300 10-20 RATIO Low BUN/CRE 9.8 LAB L501.2200 8.5-10 mg/dL Normal .1 CA 8.6 LAB L501.5300 136-14 mmol/L Normal 5 NA 141 LAB L501.5600 3.5-5. mmol/L Normal 1 K 3.6 LAB L501.5900 98-107 mmol/L Normal CL 106 LAB L501.6100 21.0-3 mmol/L Normal 2.0 CO2 24.0 LAB L501.6200 5-15 Normal GAP 11 Performed By: #### L500.2500 #### [facility] [address] [place], [address] OPERATIVE REPORT Observed: 07/12/2018 Status: F Source: [place] 6:00 PM [facility] REPOSITORY [facility] Medical Records Department [address] [place] [address] Operative Report 07/12/18 1004 MR#: [id number] Acct: [id number] Name: LALIE THOMASON Rep #: [id number] : 1950 68 From: Capo Mcneal MD PCP: Renate Pelayo MD Status: ADM ZENON Y [place] [id number] Problem List (1) GERD (gastroesophageal reflux disease) Status: Acute Qualifiers: Esophagitis presence: with esophagitis Qualified Code(s): K21.0 - Gastro-esophageal reflux disease with esophagitis Report of Operation Date of Procedure: 07/12/18 Pre-Operative Diagnosis: Hiatal hernia and gastroesophageal reflux disease with esophagitis Post-Operative Diagnosis: Same Surgery/Procedure Performed:: Laparoscopic repair of hiatal hernia with Dorinda fundoplication. Intraoperative esophagogastroduodenoscopy Description of Surgical Findings:: Timeout and informed consent was obtained. 68-year-old female was taken to the operating room. Placed supine on the table. Underwent general endotracheal intubation anesthesia. She was then placed in low lithotomy position. Buttock roll was placed. The abdomen sterilely prepped and draped with ChloraPrep. Ioban drape was used to facilitate management of the drapes. The patient received 2 g of Ancef intravenously. Superior and slightly to the right umbilicus 0.5% Marcaine was instilled then using a 5 mm direct viewing Visiport access was gained to the abdomen. The abdomen was insufflated CO2 to a pressure of 10 mmHg pressure. The abdomen is inspected no evidence of any trocar injuries no evidence of any superficial abnormalities. Tell me trocar was placed in the left epigastric area 2 more 5 in the left lateral upper quadrant and additional 5 in the right mid clavicular line upper quadrant. Liver retractor was placed to the right sided port elevating the left lobe of the liver. The patient was placed in reverse Trendelenburg position. The epiphrenic ligament was identified. A scalpel was used to incise tissues overlying the epiphrenic ligament making sure that the peritoneum stayed intact with both the right and left stephan. Blunt dissection was used to identify the posterior aspect of the esophagus small hiatal hernia noted. The fundus of the stomach unfortunately was densely adherent to the spleen and to the left hemidiaphragm. This had to be tediously dissected free with blunt dissection and harmonic scalpel dissection in order to transect the short gastrics were appropriate. Having freed the stomach I could then retracted and identify the left stephan incise the tissue there. I then was able to get circumferential control of the esophagus placed a Morley drain. The posterior vagus nerve was protected with the esophagus and stomach. I then performed circumferential dissection into the mediastinum completely releasing the distal esophagus. There was a pigmented lymph node anteriorly. This is immediately adjacent to the esophagus I did not interfere with that location. I then with Harper scalpel dissection complete fraying of the lower 6- 8 cm of esophagus. Salem that I had good mobilization. I then used 0 Ethibond sutures with Dacron pledgets and approximated the crura. 4 sutures were required. Salem that I had nice approximation but not too snug. That appeared to be nicely and intact. To have a good closure. I was then able to easily grasp the fundus of the stomach checked for tension and used a 0 Ethibond to do the apical suture which included the fundus of the stomach the epiphrenic ligament of the diaphragm the anterior wall of the esophagus and then the wrapped portion of the stomach. Good positioning was achieved securing that to the diaphragm into the esophagus. An additional suture was then used to finish the fundoplication with both pedroza of the stomach as well as the anterior wall of the esophagus. Good positioning was felt to been achieved hemostasis was nicely intact. I then placed a flexible gastroscope down the esophageal inlet. Carefully inspected the operative area water was instilled in the abdomen there was absolutely no air leak. The EG junction was now noted to be nicely below the level of the diaphragm. The wrap appeared to be nicely intact was able to retroflex the scope and image the quite nicely wrapped fundus. The remainder the stomach was noted to be quite appropriate again air leak was checked no evidence of any problems. Excess fluid and air was aspirated free of excess air from the stomach was aspirated free the scope was withdrawn. Trochars removed under visualization after the 10 mm trocar was closed with a vytyfh-wn-mihwq suture of 0 Vicryl using a GraNee needle. The abdomen was allowed to deflate his CO2 skin edges approximated with interrupted 4 Monocryl subdermal stitches Steri-Strips Telfa and OpSite dressings applied. It is of note that all skin sites were anesthetized with 0.5% Marcaine and a total of 30 cc was used throughout the procedure. Specimens none. Drains none. Blood loss minimal. She tolerated the procedure well and was taken to the recovery area in satisfactory condition without apparent complication. Capo Mcneal M.D., F.A.C.S. Type of Anesthesia:: General Anesthesiologist: Jeff Bush 07/12/18 1800 <Electronically signed by Capo Mcneal MD> Date Capo Mcneal MD CC: Renate Pelayo MD; Capo Mcneal MD Signed CBC W/DIFF, AUTOMATED Collected: 07/12/2018 Status: F Source: [place] 3:48 PM [facility] REPOSITORY TYPE CODE TESTS RESULT OUT OF RANGE REFERENCE UNITS LAB L100.1000 4.4-11.0 K/mm3 Normal WBC 8.4 LAB L100.1200 4.2-5.4 M/mm3 Normal RBC 4.66 LAB L100.1300 12.0-15.0 g/dl Normal HGB 13.6 LAB L100.1400 37-47 % Normal HCT 41.1 LAB L100.1500 81-99 fL Normal MCV 88.2 LAB L100.1600 27.0-32.0 pg Normal MCH 29.2 LAB L100.1700 32-36 g/gl Normal MCHC 33.1 LAB L100.1810 11.6-14.6 % Normal RDW CV 12.6 LAB L100.1820 35.1-43.9 fl Normal RDW SD 40.1 LAB L100.1900 150-450 K/mm3 Normal PLT 213 LAB L100.2000 6.2-12.0 fl Normal MPV 9.8 LAB L100.2100 47-70 % High NEUT% 91.2 LAB L100.2200 19-41 % Low LY% 5.6 LAB L100.2300 0-10 % Normal MONO% 3.0 LAB L100.2400 0-5 % Normal EO% 0.0 LAB L100.2500 0-1 % Normal BASO% 0.1 LAB L100.2550 0.0-0.9 % Normal IM GRAN % 0.100 Result Comment: IG% - Immature Granulocytes (promyelocytes, myelocytes and metamyelocytes) > 1% indicates that a LEFT SHIFT is Present. LAB L100.2620 2.0-7.7 X10 3/uL Normal Absolute Neut 7.7 LAB L100.2720 0.83-4.51 X10 3/ul Low Absolute Lymph 0.47 LAB L100.4500 Normal SMEAR COMMENT SCANNED Result Comment: LYMPHOPENIA NOTED Performed By: #### L100.0100 #### [facility] [address] [place], [address] BEDSIDE GLUCOSE Collected: 07/12/2018 Status: F Source: [place] 1:55 PM [facility] REPOSITORY TYPE CODE TESTS RESULT OUT OF REFERENCE UNITS RANGE LAB L501.080 70-110 mg/dL High BEDSIDE GLU 159 Result Comment: MANAGEMENT OF PATIENT CARE PER NURSING PROTOCOL Performed By: #### L501.080 #### [facility] Point of Care [address] [facility]. [place], [place] [address] 12 LEAD ELECTROCARDIOGRAM Observed: 07/07/2018 Status: F Source: [place] 1:56 PM [facility] REPOSITORY [facility] Cardiovascular Services [address] [place] [address] 12 Lead EKG 07/06/18 1523 MR#: [id number] Acct: [id number] Name: ALLIE THOMASON Rep #: [id number] : 1950 68 From: Jf Hogan MD Attending Dr: Capo Mcneal MD Status: PRE SDC Ordering Dr: Capo Mcneal MD Date: 07/06/18 Location: [facility] Sex: F C Admitted: Test Reason : PRE OP Blood Pressure : / mmHG Vent. Rate : 072 BPM Atrial Rate : 072 BPM P-R Int : 156 ms QRS Dur : 070 ms QT Int : 396 ms P-R-T Axes : 037 035 057 degrees QTc Int : 433 ms Normal sinus rhythm Normal ECG Confirmed by JF HOGAN MD ([id number]), editor book SHARLENE MELENDEZ ([id number]) on 07/07/2018 1:55:29 PM Referred By: Capo Mcneal Confirmed By:JF HOGAN MD 07/07/18 9503 Date Jf Hogan MD CC: Renate Pelayo MD; Capo Mcneal MD Signed SURGERY VISIT REPORT Observed: 07/06/2018 Status: F Source: [place] 1:46 PM [facility] REPOSITORY [facility] [address] [place] [address] OFFICE VISIT Date of Service: 07/06/18 MR#: [id number] Acct: [id number] Name: ALLIE THOMASON Rep #: [id number] : 1950 Provider: Bethany Meyer PA-C Age/Sex: 68/F Location: [facility] [address] Status: Signed Intake Vital Signs07/06/18 Height 5 ft 07/06/18 Weight: 136 lb Intake Visit Reasons: update h AND p lap dorinda 07-12 Chief Complaint: post EGD and esophageal manometry Correctional Counselor Required: No Is patient in pain?: No Allergies bupropion [From Wellbutrin] Adverse Reaction (Intermediate, Verified 07/06/18 13:15) tachycardia Medications Ascorbic Acid [Vitamin C] 500 mg PO DAILY 07/16/17 [History Confirmed 07/06/18] Melatonin 5 mg PO QHS 07/16/17 [History Confirmed 07/06/18] cholecalciferol (vitamin D3) 1,000 unit capsule 1,000 unit PO DAILY 03/31/18 [History Confirmed 07/06/18] multivitamin tablet 1 tab PO DAILY 03/31/18 [History Confirmed 07/06/18] venlafaxine 37.5 mg tablet 37.5 mg PO DAILY tab 07/06/18 [History Confirmed 07/06/18] PFSH Medical History GERD (gastroesophageal reflux disease) (Acute) Anxiety and depression (Acute) GERD (gastroesophageal reflux disease) (Acute) Osteoarthritis (Acute) HTN (hypertension) (Chronic) Surgical History History of carpal tunnel release (Acute) History of colonoscopy (Acute) History of esophagogastroduodenoscopy (EGD) (Acute) History of knee surgery (Acute) History of tonsillectomy and adenoidectomy (Acute) Status post trigger finger release (Acute) Family History Father Diabetes CAD (coronary artery disease) Hypertension Asthma CVA (cerebral vascular accident) Social History Smoking Status: Former smoker HPI HPI HPI: Patient is a 68 y/o female I am following for chronic symptomatic GERD. Patient presents for an update history and physical. Patient denies recent hospitalizations or illnesses. She denies previous complications with anesthesia. Patient denies previous myocardial infarction, stroke, and blood clots. Patient's previous history per Dr. Mcneal: 68-year-old female. She has significant reflux symptoms in the form of chronic cough and violent awakenings from sleep. She has a known hiatal hernia. She was H. pylori negative and has known antral biopsies of gastritis and chronic esophagitis. She actually had an extensive evaluation 2012. It is her pulmonary issues currently that is driving her to seek attention. She has been on chronic omeprazole therapy. She has had an abnormal Lester pH probe study consistent with significant reflux. I have assisted the patient in June 2017 with a colonoscopy which fortunately was normal. The patient resents today noting that for over a year she has been having problems with heartburn retrosternal discomfort constant pain worsened at night with being awakened with coughing and hoarse throat and voice. She has tried recently [id number] Prilosec without distinct change. She has to eat toast and milk to try to calm down the discomfort. Now admittedly looking back through some of her records it appears that she has actually had problems for a more extended period of time. I have record of a upper endoscopy performed at the [facility] on December 09, 2012 which demonstrated at that time a hiatal hernia. Gastritis. Final pathology showed focal active duodenitis. Chronic inactive gastritis. H. pylori was negative. The midesophagus was unremarkable. He would appear however that her current symptoms have significantly escalated. ROS General General: No weight change, appetite, fatigue, colon cancer, breast cancer or weakness HEENT HEENT: No difficulty swallowing, eye injury, eye surgery, swollen glands or hoarseness Endo Endocrine: No thyroid disease, diabetes mellitus, thyroid cancer, Hair loss, heat intolerance or cold intolerance Musc Musculoskeletal: Yes arthritis; no back problems, rheumatoid arthritis, gout or joint pain Cardio Cardiovascular: Yes high blood pressure; no murmur, pacemaker, heart disease, atrial fibrillation, heart attack, heart stent, palpitations, shortness of breat with exertion or chest pain Psych Psychiatric: Yes depression and anxiety; no hearing voices Resp Respiratory: No shortness of breath, No sleep apnea, Yes cough, No COPD, No asthma, No emphysema, No wheezing Gastro Gastrointestinal: No abdominal pain, No nausea or vomiting, No diarrhea, No constipation, No blood in stool, Yes acid reflux, No hemorrhoids, No ulcers, No gallbladder problem, No black,tarry stools Medardo Hematologic: No blood thinners, No blood disorders, No bleeding, No anemia, No blood clots Neuro Neurologic: No weakness Exam Const General: cooperative, comfortable, no acute distress, healthy appearing HENMT Head: normal to inspection Eyes General: appearance normal, both eyes and all related structures Neck Neck: normal visual inspection Neck mass: No Resp Effort AND Inspection: normal respiratory effort Auscultation: clear to auscultation bilaterally Cardio Rate: regular rate Rhythm: regular rhythm Heart Sounds: no murmurs GI Inspection: normal to inspection Palpation: soft, nontender Auscultation: normal bowel sounds Skin General: no rashes or lesions noted Neuro General: no focal motor deficits, CN's II-XI intact bilaterally Extrem General: normal to inspection Psych Appearance: grossly normal Affect: normal affect Assessment AND Plan Problems 1. Gastroesophageal reflux disease, esophagitis presence not specified K21.9 2. Hiatal hernia K44.[address] Mcneal will plan to perform a laparoscopic Dorinda fundoplication. Procedure details, risks and benefits have been reviewed. Patient has had the opportunity to ask and have questions answered. Patient verbally understands and agrees with the plan. Coding Level of Care Code No Charge Diagnoses Gastroesophageal reflux disease, esophagitis presence not specified K21.9 Esophagitis presence: esophagitis presence not specified Hiatal hernia K44.9 Comment Update H AND P 07/06/18 1549 <Electronically signed by Bethany Meyer PA-C> Date Bethany Meyer PA-C Cosigner Signature: Date (if applicable) CC: SURGERY VISIT REPORT Observed: 05/24/2018 Status: F Source: [place] 4:13 PM [facility] REPOSITORY [facility] [address] [place] [address] OFFICE VISIT Date of Service: 05/24/18 MR#: [id number] Acct: [id number] Name: ALLIE THOMASON Rep #: [id number] : 1950 Provider: Capo Mcneal MD Age/Sex: 68/F Location: [facility] [address] [address] Status: Signed Intake Intake Visit Reasons: F/U Test Results EGD 05/11 Chief Complaint: post EGD and esophageal manometry Correctional Counselor Required: No Is patient in pain?: No Allergies bupropion [From Wellbutrin] Adverse Reaction (Intermediate, Verified 05/24/18 14:10) tachycardia Medications Ascorbic Acid [Vitamin C] 500 mg PO DAILY 07/16/17 [History Confirmed 05/24/18] Citalopram [Celexa] 20 mg PO DAILY 07/16/17 [History Confirmed 05/24/18] Lamotrigine [Lamictal Xr] 100 mg PO DAILY 07/16/17 [History Confirmed 05/24/18] Melatonin 5 mg PO QHS 07/16/17 [History Confirmed 05/24/18] cholecalciferol (vitamin D3) 1,000 unit capsule 1,000 unit PO DAILY 03/31/18 [History Confirmed 05/24/18] multivitamin tablet 1 tab PO DAILY 03/31/18 [History Confirmed 05/24/18] Is last menstrual period known: No Post menopausal: Yes Patient : No Subjective Details: 68-year-old female. She has significant reflux symptoms in the form of chronic cough and violent awakenings from sleep. She has a known hiatal hernia. She was H. pylori negative and has known antral biopsies of gastritis and chronic esophagitis. She actually had an extensive evaluation 2012. It is her pulmonary issues currently that is driving her to seek attention. She has been on chronic omeprazole therapy. She has had an abnormal Lester pH probe study consistent with significant reflux. My previous notes reflect the following MR#:[id number] Name: ALLIE THOMASON ARe #:[id number] : 1950 Provider:Capo Mcneal MD Age/Sex: 68/F Location:[facility] [place] Status:Signed Intake Intake Visit Reasons: C-SCOPE 04/20 Chief Complaint: GERD, esophageal burning Correctional Counselor Required: No Is patient in pain?: No Allergies bupropion [From Wellbutrin] Adverse Reaction (Intermediate, Verified 04/27/18 15:34) tachycardia Medications Ascorbic Acid [Vitamin C] 500 mg PO DAILY 07/16/17 [History Confirmed 04/27/18] Citalopram [Celexa] 20 mg PO DAILY 07/16/17 [History Confirmed 04/27/18] Lamotrigine [Lamictal Xr] 100 mg PO DAILY 07/16/17 [History Confirmed 04/27/18] Melatonin 5 mg PO QHS 07/16/17 [History Confirmed 04/27/18] cholecalciferol (vitamin D3) 1,000 unit capsule 1,000 unit PO DAILY 03/31/18 [History Confirmed 04/27/18] multivitamin tablet 1 tab PO DAILY 03/31/18 [History Confirmed 04/27/18] Subjective Details: 68-year-old female returns today to discuss her reflux evaluation. Her primary symptoms were cough sore throat hoarseness. Below demonstrates her EGD with pH probe and biopsies consistent with hiatal hernia and reflux esophagitis. Her pH probe was significantly abnormal with a DeMeester score of 41.3 Today was a 20-minute ixoy-fu-iecn consultative appointment regarding results and ongoing recommendations [facility] Medical Records Department [address] [place] [address] Operative Report - Endoscopy MR#: [id number] Name: ALLIE THOMASON ARe #:[id number] : 1950 68From: Capo Mcneal MD PCP:Renate Pelayo MD Status:[facility] Patient Name: Allie Thomason Procedure Date: 04/20/2018 7:12 AM Date of : 1950 Age: 68 Procedure: Upper GI endoscopy Indications: Suspected gastro-esophageal reflux disease Providers: Capo Mcneal MD Referring MD: Capo Mcneal MD Medicines: Midazolam 3 mg IV, Meperidine 75 mg IV Complications: No immediate complications. Procedure: Pre-Anesthesia Assessment: - Prior to the procedure, a History and Physical was performed, and patient medications and allergies were reviewed. The patient's tolerance of previous anesthesia was also reviewed. The risks and benefits of the procedure and the sedation options and risks were discussed with the patient. All questions were answered, and informed consent was obtained. Prior Anticoagulants: The patient has taken no previous anticoagulant or antiplatelet agents. ASA Grade Assessment: II - A patient with mild systemic disease. After reviewing the risks and benefits, the patient was deemed in satisfactory condition to undergo the procedure. After obtaining informed consent, the endoscope was passed under direct vision. Throughout the procedure, the patient's blood pressure, pulse, and oxygen saturations were monitored continuously. The gastroscope was introduced through the mouth, and advanced to the second part of duodenum. The upper GI endoscopy was accomplished without difficulty. The patient tolerated the procedure well. Moderate Sedation: Moderate (conscious) sedation was personally administered by the endoscopist. The following parameters were monitored: oxygen saturation, heart rate, blood pressure, and response to care. Total physician intraservice time was 15 minutes. Scope In: 7:22:03 AM Scope Out: 7:31:25 AM Total Procedure Duration Time 0 hours 9 minutes 22 seconds Findings: LA Grade A (one or more mucosal breaks less than 5 mm, not extending between tops of 2 mucosal folds) esophagitis with no bleeding was found 35 cm from the incisors. Biopsies were taken with a cold forceps for histology. The Z-line was regular and was found 35 cm from the incisors. A medium-sized hiatal hernia was present. The entire examined stomach was normal. Biopsies were taken with a cold forceps for histology. The examined duodenum was normal. A medium-sized hiatal hernia was present. The LESTER capsule with delivery system was introduced through the mouth and advanced into the esophagus, such that the LESTER pH capsule was positioned 29 cm from the incisors, which was 6 cm proximal to the GE junction. The LESTER pH capsule was then deployed and attached to the esophageal mucosa. The delivery system was then withdrawn. Endoscopy was utilized for probe placement and diagnostic evaluation. Impression: - LA Grade A reflux esophagitis. Biopsied. - Z-line regular, 35 cm from the incisors Successfully placed Lester probe. - Medium-sized hiatal hernia. - Normal stomach. Biopsied at the antrum - Normal examined duodenum. Recommendation: - Discharge patient to home. - Resume previous diet. - Continue present medications. - Return to my office in 1 week. Procedure Code(s): --- Professional --- 98516, Esophagogastroduodenoscopy, flexible, transoral; with biopsy, single or multiple 74645, 59, Moderate sedation services provided by the same physician or other qualified health care information associate performing the diagnostic or therapeutic service that the sedation supports, requiring the presence of an independent trained observer to assist in the monitoring of the patient's level of consciousness and physiological status; initial 15 minutes of intraservice time, patient age 5 years or older Diagnosis Code(s): --- Professional --- K21.0, Gastro-esophageal reflux disease with esophagitis K44.9, Diaphragmatic hernia without obstruction or gangrene CPT copyright 2017 [employer]. All rights reserved. The codes documented in this report are preliminary and upon hiv nurse review may be revised to meet current compliance requirements. Capo Mcneal MD 04/20/2018 7:39:30 AM This report has been signed electronically. Number of Addenda: 0 Note Initiated On: 04/20/2018 7:12 AM 04/20/18 0739 Date Capo Mcneal MD [facility] [id number] [place], [place] [id number] Page 1of 2The contents of this transmission are privileged, confidential and exempt from disclosureunder applicable law. If you have received this information in error, call . ALLIE BLANCO Sekou MR# [id number]: ALLIE THOMASON AAgloretta/Sex: 68/[address]: Unit #: [id number]: ENDOB: 1950Status:DEP SDCFacility:WOC ____Spec# :[id number] Spec Date: 04/20/18 Dr: Gisselle Mcneal MD Type: GASBOPERATION: EGD PH probe (MOD)PRE-OP DIAGNOSIS: GERD, esophagitisTISSUE SUBMITTED: A Antral biopsy for histo and H. pylori, B Distal esophagus biopsy MICROSCOPIC DIAGNOSISA. Antral biopsy:Mild gastritis.See microscopic description and comment.B. Distal esophageal biopsy:Fragments of squamous mucosa with chronic inflammation.SJ:carole 04/21/18COMMENTA. H. pylori was negative The results ofimmunohistochemistry for Helicobacter pylori will be reported separately ([id number]).MICROSCOPIC DESCRIPTIONSlides are reviewed.A. The specimen shows fragments of gastric mucosa with chronic inflammatory cell infiltrates in the lamina propria consisting of lymphocytes and plasma cells, consistent with mild chronic gastritis.GROSS DESCRIPTIONA -Received in fixative is one container labeled with the patient's name and designated antral biopsy. The specimen consists of one irregular fragment of light quinn soft tissue that measures 0.4 x 0.3 x 0.1 cm. The specimen is totally submitted in one cassette.B -Received in fixative is one container labeled with the patient's name and designated distal esophageal biopsy. The specimen consists of multiple irregular fragments of light quinn soft tissue that in aggregate measure 0.8 x 0.2 x 0.1 cm. The specimen is totally submitted in one cassette. / SJ:rg 04/20/18 TC:3CPT: [id number] x2 Electroni jasson Signed by: Dr. Shaka Barr 04/21/18 1243 MR#:[id number] Name: ALLIE THOMASON [facility] #:[id number] : 1950 Provider:Capo Mcneal MD Age/Sex: 68/F Location:[facility] [address] Status:Signed Intake Vital Signs 03/31/18 Height 5 ft 03/31/18 Weight: 134 lb 5 oz 03/31/18 Body Mass Index (BMI) 26.2 03/31/18 Blood Pressure 144/87 H 03/31/18 Blood Pressure Location Rt brachial 03/31/18 Blood Pressure Position Sitting 03/31/18 Respiratory Rate 20 H 03/31/18 Pulse Rate 74 03/31/18 Pulse Ox 97 Intake Visit Reasons: C-Scope consult dx heartburn Chief Complaint: GERD, esophageal burning Correctional Counselor Required: No Is patient in pain?: No Allergies bupropion [From Wellbutrin] Adverse Reaction (Intermediate, Verified 03/31/18 14:35) tachycardia Medications Ascorbic Acid [Vitamin C] 500 mg PO DAILY 07/16/17 [History Confirmed 03/31/18] Citalopram [Celexa] 20 mg PO DAILY 07/16/17 [History Confirmed 03/31/18] Lamotrigine [Lamictal Xr] 100 mg PO DAILY 07/16/17 [History Confirmed 03/31/18] Melatonin 5 mg PO QHS 07/16/17 [History Confirmed 03/31/18] cholecalciferol (vitamin D3) 1,000 unit capsule 1,000 unit PO DAILY 03/31/18 [History Confirmed 03/31/18] multivitamin tablet 1 tab PO DAILY 03/31/18 [History Confirmed 03/31/18] Is last menstrual period known: No Post menopausal: Yes Patient : No PFSH Medical History GERD (gastroesophageal reflux disease) (Acute) Anxiety and depression (Acute) GERD (gastroesophageal reflux disease) (Acute) Osteoarthritis (Acute) HTN (hypertension) (Chronic) Surgical History History of carpal tunnel release (Acute) History of colonoscopy (Acute) History of esophagogastroduodenoscopy (EGD) (Acute) History of knee surgery (Acute) History of tonsillectomy and adenoidectomy (Acute) Status post trigger finger release (Acute) Family History Father Diabetes CAD (coronary artery disease) Hypertension Asthma CVA (cerebral vascular accident) Social History Smoking Status: Former smoker HPI HPI HPI: ALLIE THOMASON, is a 68 F who presents to the office today for surgical consultation regarding gastroesophageal reflux disease. Patient's primary care physician Dr. Renate Pelayo and the patient is referred because of intractable GERD. A written copy of my surgical consult palpitations were returned to Dr. Pelayo. I have assisted the patient in June 2017 with a colonoscopy which fortunately was normal. The patient resents today noting that for over a year she has been having problems with heartburn retrosternal discomfort constant pain worsened at night with being awakened with coughing and hoarse throat and voice. She has tried recently pugt-loz-cyspggn Prilosec without distinct change. She has to eat toast and milk to try to calm down the discomfort. Now admittedly looking back through some of her records it appears that she has actually had problems for a more extended period of time. I have record of a upper endoscopy performed at the [facility] on December 09, 2012 which demonstrated at that time a hiatal hernia. Gastritis. Final pathology showed focal active duodenitis. Chronic inactive gastritis. H. pylori was negative. The midesophagus was unremarkable. He would appear however that her current symptoms have significantly escalated. ROS General General: No weight change, appetite, fatigue, colon cancer, breast cancer or weakness HEENT HEENT: No difficulty swallowing, eye injury, eye surgery, swollen glands or hoarseness Endo Endocrine: No thyroid disease, diabetes mellitus, thyroid cancer, Hair loss, heat intolerance or cold intolerance Musc Musculoskeletal: Yes arthritis; no back problems, rheumatoid arthritis, gout or joint pain Cardio Cardiovascular: Yes high blood pressure; no murmur, pacemaker, heart disease, atrial fibrillation, heart attack, heart stent, palpitations, shortness of breat with exertion or chest pain Psych Psychiatric: Yes depression and anxiety; no hearing voices Resp Respiratory: No shortness of breath, No sleep apnea, Yes cough, No COPD, No asthma, No emphysema, No wheezing Gastro Gastrointestinal: No abdominal pain, No nausea or vomiting, No diarrhea, No constipation, No blood in stool, Yes acid reflux, No hemorrhoids, No ulcers, No gallbladder problem, No black,tarry stools Medardo Hematologic: No blood thinners, No blood disorders, No bleeding, No anemia, No blood clots Neuro Neurologic: No weakness Exam Const General: cooperative, healthy appearing Nutritional Appearance: average body habitus Orientation: alert, awake HENNY Head: normal to inspection Eyes General: appearance normal, both eyes and all related structures Neck Neck: normal visual inspection Resp Effort AND Inspection: normal respiratory effort Auscultation: clear to auscultation bilaterally Cardio Rate: regular rate Rhythm: regular rhythm Heart Sounds: no murmurs GI Palpation: soft, no hepatosplenomegaly Auscultation: normal bowel sounds Skin General: no rashes or lesions noted Neuro Cranial Nerves: CN's II-XI intact bilaterally Extrem General: no calf tenderness Psych Affect: normal affect Assessment AND Plan Problems 1. Gastroesophageal reflux disease, esophagitis presence not specified K21.9 Plan Findings are certainly quite suspicious for gastroesophageal reflux disease likely with esophagitis. Suspect hiatal hernia. The patient has just initiated omeprazole therapy 20 mg daily but states that this has had absolutely no improvement I recommend for her a esophagogastroduodenoscopy with biopsy as appropriate. I would anticipate antral and likely distal esophageal and may be mid esophageal biopsies as well. I would anticipate placing a pH probe as I do believe that she has clinically significant reflux disease. Currently albeit on a low-dose she does not appear to be responding well to omeprazole medication. She is aware of the technique, benefits, risks, alternatives. She has had an opportunity to ask and have questions answered. We will schedule and proceed at her discretion. In the interim I have asked her to double her omeprazole therapy to 20 mg p.o. twice daily. Because of the pH probe she will need to hold that around the time of her procedure. The patient states that prior to her colonoscopy she had asked her IV fluids provided because she becomes vasovagal. We will have her appear an hour prior to allow for a 500 cc bolus of normal saline. Cc: Dr Renate Mcneal M.D., F.A.C.S. Coding Level of Care Code Detailed, Low Diagnoses Gastroesophageal reflux disease, esophagitis presence not specified K21.9 Esophagitis presence: esophagitis presence not specified Assessment AND Plan Problems 1. Gastroesophageal reflux disease, esophagitis presence not specified K21.9 Plan I am recommending the patient esophageal manometry per. I believe that she has classic alarm symptoms and would benefit from a laparoscopic hiatal hernia repair with diaphragmatic repair and reflux procedure. This might be in the form of a laparoscopic Dorinda fundoplication or a laparoscopic toupet procedure. With the present I discussed technique, benefits, risks, alternatives. The patient indeed additionally has H. pylori negative mild gastritis. She might require ongoing treatment of that but that could likely be in the form of a H2 ivania rather than a chronic proton pump inhibitor. At the current time the patient is dependent upon her proton pump inhibitor of omeprazole. She has had an opportunity to ask and have questions answered. She is comfortable with proceeding with manometry and then will return for surgical follow-up to discuss ongoing treatment options. I very much appreciate the kind opportunity of assisting with her surgical care CC: Dr. Renate Mcneal M.D., F.A.C.S. Coding Level of Care Code Off vis,est,level 2 Diagnoses Gastroesophageal reflux disease, esophagitis presence not specified K21.9 Esophagitis presence: esophagitis presence not specified 04/27/18 1742<Electronically signed by Capo Mcneal MD> Date Capo Mcneal MD Assessment AND Plan Problems 1. Gastroesophageal reflux disease, esophagitis presence not specified K21.9 Plan On May 11, 2018 the patient had a esophageal manometry performed at the [facility]. It is suggested that no hiatal hernia was detected but indeed she does have evidence of a hiatal hernia and upon upper endoscopy her Z line was found at 35 cm. The esophageal manometry demonstrated 10 normal swallows with normal LES relaxation. Good clearance of bolus after each swallow. Normal exam There was a 20-minute ryol-ob-xzzc consultative appointment. I have suggested the patient that she strongly consider a laparoscopic Dorinda fundoplication. I believe that her pulmonary symptoms are significant and the patient again recants that approximately a week ago she had a severe episode awakening her from sleep with coughing and heartburn. In detail I have discussed the technique, benefits, risks, alternatives. No guarantees of success have been offered. We discussed some of the side effects including inability to vomit and the possibility of gas bloat. In addition she does have biopsy-proven gastritis and may require chronic H2 ivania therapy. She has had an opportunity to ask and have questions answered. At this point she is interested in pursuing definitive surgical management. We will schedule and proceed as noted. CC: Dr. Renate Mcneal M.D., F.A.C.S. Coding Level of Care Code Off vis,est,level 2 Diagnoses Gastroesophageal reflux disease, esophagitis presence not specified K21.9 Esophagitis presence: esophagitis presence not specified 05/24/18 1613 <Electronically signed by Capo Mcneal MD> Date Capo Mcneal MD Cosigner Signature: Date (if applicable) CC: Renate Pelayo MD SURGERY VISIT REPORT Observed: 04/27/2018 Status: F Source: [place] 5:42 PM [facility] REPOSITORY [facility] [address] [place] [address] OFFICE VISIT Date of Service: 04/27/18 MR#: [id number] Acct: [id number] Name: ALLIE THOMASON Rep #: [id number] : 1950 Provider: Capo Mcneal MD Age/Sex: 68/F Location: [facility] [address] Status: Signed Intake Intake Visit Reasons: C-SCOPE 04/20 Chief Complaint: GERD, esophageal burning Correctional Counselor Required: No Is patient in pain?: No Allergies bupropion [From Wellbutrin] Adverse Reaction (Intermediate, Verified 04/27/18 15:34) tachycardia Medications Ascorbic Acid [Vitamin C] 500 mg PO DAILY 07/16/17 [History Confirmed 04/27/18] Citalopram [Celexa] 20 mg PO DAILY 07/16/17 [History Confirmed 04/27/18] Lamotrigine [Lamictal Xr] 100 mg PO DAILY 07/16/17 [History Confirmed 04/27/18] Melatonin 5 mg PO QHS 07/16/17 [History Confirmed 04/27/18] cholecalciferol (vitamin D3) 1,000 unit capsule 1,000 unit PO DAILY 03/31/18 [History Confirmed 04/27/18] multivitamin tablet 1 tab PO DAILY 03/31/18 [History Confirmed 04/27/18] Subjective Details: 68-year-old female returns today to discuss her reflux evaluation. Her primary symptoms were cough sore throat hoarseness. Below demonstrates her EGD with pH probe and biopsies consistent with hiatal hernia and reflux esophagitis. Her pH probe was significantly abnormal with a DeMeester score of 41.3 Today was a 20-minute pyau-ol-koti consultative appointment regarding results and ongoing recommendations [facility] Medical Records Department [address] [place] [address] Operative Report - Endoscopy MR#: [id number] Name: ALLIE THOMASON [facility] #:[id number] : 1950 68From: Capo Mcneal MD PCP:Renate Pelayo MD Status:[facility] Patient Name: Allie Thomason Procedure Date: 04/20/2018 7:12 AM Date of : 1950 Age: 68 Procedure: Upper GI endoscopy Indications: Suspected gastro-esophageal reflux disease Providers: Capo Mcneal MD Referring MD: Capo Mcneal MD Medicines: Midazolam 3 mg IV, Meperidine 75 mg IV Complications: No immediate complications. Procedure: Pre-Anesthesia Assessment: - Prior to the procedure, a History and Physical was performed, and patient medications and allergies were reviewed. The patient's tolerance of previous anesthesia was also reviewed. The risks and benefits of the procedure and the sedation options and risks were discussed with the patient. All questions were answered, and informed consent was obtained. Prior Anticoagulants: The patient has taken no previous anticoagulant or antiplatelet agents. ASA Grade Assessment: II - A patient with mild systemic disease. After reviewing the risks and benefits, the patient was deemed in satisfactory condition to undergo the procedure. After obtaining informed consent, the endoscope was passed under direct vision. Throughout the procedure, the patient's blood pressure, pulse, and oxygen saturations were monitored continuously. The gastroscope was introduced through the mouth, and advanced to the second part of duodenum. The upper GI endoscopy was accomplished without difficulty. The patient tolerated the procedure well. Moderate Sedation: Moderate (conscious) sedation was personally administered by the endoscopist. The following parameters were monitored: oxygen saturation, heart rate, blood pressure, and response to care. Total physician intraservice time was 15 minutes. Scope In: 7:22:03 AM Scope Out: 7:31:25 AM Total Procedure Duration Time 0 hours 9 minutes 22 seconds Findings: LA Grade A (one or more mucosal breaks less than 5 mm, not extending between tops of 2 mucosal folds) esophagitis with no bleeding was found 35 cm from the incisors. Biopsies were taken with a cold forceps for histology. The Z-line was regular and was found 35 cm from the incisors. A medium-sized hiatal hernia was present. The entire examined stomach was normal. Biopsies were taken with a cold forceps for histology. The examined duodenum was normal. A medium-sized hiatal hernia was present. The LESTER capsule with delivery system was introduced through the mouth and advanced into the esophagus, such that the LESTER pH capsule was positioned 29 cm from the incisors, which was 6 cm proximal to the GE junction. The LESTER pH capsule was then deployed and attached to the esophageal mucosa. The delivery system was then withdrawn. Endoscopy was utilized for probe placement and diagnostic evaluation. Impression: - LA Grade A reflux esophagitis. Biopsied. - Z-line regular, 35 cm from the incisors Successfully placed Lester probe. - Medium-sized hiatal hernia. - Normal stomach. Biopsied at the antrum - Normal examined duodenum. Recommendation: - Discharge patient to home. - Resume previous diet. - Continue present medications. - Return to my office in 1 week. Procedure Code(s): --- Professional --- 55525, Esophagogastroduodenoscopy, flexible, transoral; with biopsy, single or multiple 58443, 59, Moderate sedation services provided by the same physician or other qualified health care information associate performing the diagnostic or therapeutic service that the sedation supports, requiring the presence of an independent trained observer to assist in the monitoring of the patient's level of consciousness and physiological status; initial 15 minutes of intraservice time, patient age 5 years or older Diagnosis Code(s): --- Professional --- K21.0, Gastro-esophageal reflux disease with esophagitis K44.9, Diaphragmatic hernia without obstruction or gangrene CPT copyright 2017 [employer]. All rights reserved. The codes documented in this report are preliminary and upon hiv nurse review may be revised to meet current compliance requirements. Capo Mcneal MD 04/20/2018 7:39:30 AM This report has been signed electronically. Number of Addenda: 0 Note Initiated On: 04/20/2018 7:12 AM 04/20/18 0739 Date Capo Mcneal MD [facility] [id number] [place], [place] [address] Page 1of 2The contents of this transmission are privileged, confidential and exempt from disclosureunder applicable law. If you have received this information in error, call . ALLIE BLANCO MR# [id number]: ALLIE THOMASON/Sex: 68/[address]: Unit #: [id number]: ENDOB: 1950Status:DEP SDCFacility:WOC ____Spec# :[id number] Spec Date: 04/20/18 Dr: [facility] Type: GASBOPERATION: EGD PH probe (MOD)PRE-OP DIAGNOSIS: GERD, esophagitisTISSUE SUBMITTED: A Antral biopsy for histo and H. pylori, B Distal esophagus biopsy MICROSCOPIC DIAGNOSISA. Antral biopsy:Mild gastritis.See microscopic description and comment.B. Distal esophageal biopsy:Fragments of squamous mucosa with chronic inflammation.SJ:carole 04/21/18COMMENTA. H. pylori was negative The results ofimmunohistochemistry for Helicobacter pylori will be reported separately ([id number]).MICROSCOPIC DESCRIPTIONSlides are reviewed.A. The specimen shows fragments of gastric mucosa with chronic inflammatory cell infiltrates in the lamina propria consisting of lymphocytes and plasma cells, consistent with mild chronic gastritis.GROSS DESCRIPTIONA -Received in fixative is one container labeled with the patient's name and designated antral biopsy. The specimen consists of one irregular fragment of light quinn soft tissue that measures 0.4 x 0.3 x 0.1 cm. The specimen is totally submitted in one cassette.B -Received in fixative is one container labeled with the patient's name and designated distal esophageal biopsy. The specimen consists of multiple irregular fragments of light quinn soft tissue that in aggregate measure 0.8 x 0.2 x 0.1 cm. The specimen is totally submitted in one cassette. / SJ:rg 04/20/18 TC:3CPT: 70467 x2 Electroni jasson Signed by: Dr. Shaka Barr 04/21/18 1243 MR#:[id number] Name: ALLIE THOMASON [facility] #:[id number] : 1950 Provider:Capo Mcneal MD Age/Sex: 68/F Location:[facility] [address] Status:Signed Intake Vital Signs 03/31/18 Height 5 ft 03/31/18 Weight: 134 lb 5 oz 03/31/18 Body Mass Index (BMI) 26.2 03/31/18 Blood Pressure 144/87 H 03/31/18 Blood Pressure Location Rt brachial 03/31/18 Blood Pressure Position Sitting 03/31/18 Respiratory Rate 20 H 03/31/18 Pulse Rate 74 03/31/18 Pulse Ox 97 Intake Visit Reasons: C-Scope consult dx heartburn Chief Complaint: GERD, esophageal burning Correctional Counselor Required: No Is patient in pain?: No Allergies bupropion [From Wellbutrin] Adverse Reaction (Intermediate, Verified 03/31/18 14:35) tachycardia Medications Ascorbic Acid [Vitamin C] 500 mg PO DAILY 07/16/17 [History Confirmed 03/31/18] Citalopram [Celexa] 20 mg PO DAILY 07/16/17 [History Confirmed 03/31/18] Lamotrigine [Lamictal Xr] 100 mg PO DAILY 07/16/17 [History Confirmed 03/31/18] Melatonin 5 mg PO QHS 07/16/17 [History Confirmed 03/31/18] cholecalciferol (vitamin D3) 1,000 unit capsule 1,000 unit PO DAILY 03/31/18 [History Confirmed 03/31/18] multivitamin tablet 1 tab PO DAILY 03/31/18 [History Confirmed 03/31/18] Is last menstrual period known: No Post menopausal: Yes Patient : No PFSH Medical History GERD (gastroesophageal reflux disease) (Acute) Anxiety and depression (Acute) GERD (gastroesophageal reflux disease) (Acute) Osteoarthritis (Acute) HTN (hypertension) (Chronic) Surgical History History of carpal tunnel release (Acute) History of colonoscopy (Acute) History of esophagogastroduodenoscopy (EGD) (Acute) History of knee surgery (Acute) History of tonsillectomy and adenoidectomy (Acute) Status post trigger finger release (Acute) Family History Father Diabetes CAD (coronary artery disease) Hypertension Asthma CVA (cerebral vascular accident) Social History Smoking Status: Former smoker HPI HPI HPI: ALLIE THOMASON, is a 68 F who presents to the office today for surgical consultation regarding gastroesophageal reflux disease. Patient's primary care physician Dr. Renate Pelayo and the patient is referred because of intractable GERD. A written copy of my surgical consult palpitations were returned to Dr. Pelayo. I have assisted the patient in June 2017 with a colonoscopy which fortunately was normal. The patient resents today noting that for over a year she has been having problems with heartburn retrosternal discomfort constant pain worsened at night with being awakened with coughing and hoarse throat and voice. She has tried recently [id number] Prilosec without distinct change. She has to eat toast and milk to try to calm down the discomfort. Now admittedly looking back through some of her records it appears that she has actually had problems for a more extended period of time. I have record of a upper endoscopy performed at the [facility] on December 09, 2012 which demonstrated at that time a hiatal hernia. Gastritis. Final pathology showed focal active duodenitis. Chronic inactive gastritis. H. pylori was negative. The midesophagus was unremarkable. He would appear however that her current symptoms have significantly escalated. ROS General General: No weight change, appetite, fatigue, colon cancer, breast cancer or weakness HEENT HEENT: No difficulty swallowing, eye injury, eye surgery, swollen glands or hoarseness Endo Endocrine: No thyroid disease, diabetes mellitus, thyroid cancer, Hair loss, heat intolerance or cold intolerance Musc Musculoskeletal: Yes arthritis; no back problems, rheumatoid arthritis, gout or joint pain Cardio Cardiovascular: Yes high blood pressure; no murmur, pacemaker, heart disease, atrial fibrillation, heart attack, heart stent, palpitations, shortness of breat with exertion or chest pain Psych Psychiatric: Yes depression and anxiety; no hearing voices Resp Respiratory: No shortness of breath, No sleep apnea, Yes cough, No COPD, No asthma, No emphysema, No wheezing Gastro Gastrointestinal: No abdominal pain, No nausea or vomiting, No diarrhea, No constipation, No blood in stool, Yes acid reflux, No hemorrhoids, No ulcers, No gallbladder problem, No black,tarry stools Medardo Hematologic: No blood thinners, No blood disorders, No bleeding, No anemia, No blood clots Neuro Neurologic: No weakness Exam Const General: cooperative, healthy appearing Nutritional Appearance: average body habitus Orientation: alert, awake [facility] Head: normal to inspection Eyes General: appearance normal, both eyes and all related structures Neck Neck: normal visual inspection Resp Effort AND Inspection: normal respiratory effort Auscultation: clear to auscultation bilaterally Cardio Rate: regular rate Rhythm: regular rhythm Heart Sounds: no murmurs GI Palpation: soft, no hepatosplenomegaly Auscultation: normal bowel sounds Skin General: no rashes or lesions noted Neuro Cranial Nerves: CN's II-XI intact bilaterally Extrem General: no calf tenderness Psych Affect: normal affect Assessment AND Plan Problems 1. Gastroesophageal reflux disease, esophagitis presence not specified K21.9 Plan Findings are certainly quite suspicious for gastroesophageal reflux disease likely with esophagitis. Suspect hiatal hernia. The patient has just initiated omeprazole therapy 20 mg daily but states that this has had absolutely no improvement I recommend for her a esophagogastroduodenoscopy with biopsy as appropriate. I would anticipate antral and likely distal esophageal and may be mid esophageal biopsies as well. I would anticipate placing a pH probe as I do believe that she has clinically significant reflux disease. Currently albeit on a low-dose she does not appear to be responding well to omeprazole medication. She is aware of the technique, benefits, risks, alternatives. She has had an opportunity to ask and have questions answered. We will schedule and proceed at her discretion. In the interim I have asked her to double her omeprazole therapy to 20 mg p.o. twice daily. Because of the pH probe she will need to hold that around the time of her procedure. The patient states that prior to her colonoscopy she had asked her IV fluids provided because she becomes vasovagal. We will have her appear an hour prior to allow for a 500 cc bolus of normal saline. Cc: Dr Renate Mcneal M.D., F.A.C.S. Coding Level of Care Code Detailed, Low Diagnoses Gastroesophageal reflux disease, esophagitis presence not specified K21.9 Esophagitis presence: esophagitis presence not specified Assessment AND Plan Problems 1. Gastroesophageal reflux disease, esophagitis presence not specified K21.9 Plan I am recommending the patient esophageal manometry per. I believe that she has classic alarm symptoms and would benefit from a laparoscopic hiatal hernia repair with diaphragmatic repair and reflux procedure. This might be in the form of a laparoscopic Dorinda fundoplication or a laparoscopic toupet procedure. With the present I discussed technique, benefits, risks, alternatives. The patient indeed additionally has H. pylori negative mild gastritis. She might require ongoing treatment of that but that could likely be in the form of a H2 ivania rather than a chronic proton pump inhibitor. At the current time the patient is dependent upon her proton pump inhibitor of omeprazole. She has had an opportunity to ask and have questions answered. She is comfortable with proceeding with manometry and then will return for surgical follow-up to discuss ongoing treatment options. I very much appreciate the kind opportunity of assisting with her surgical care CC: Dr. Renate Mcneal M.D., F.A.C.S. Coding Level of Care Code Off vis,est,level 2 Diagnoses Gastroesophageal reflux disease, esophagitis presence not specified K21.9 Esophagitis presence: esophagitis presence not specified 04/27/18 1742 <Electronically signed by Capo Mcneal MD> Date Capo Mcneal MD Cosigner Signature: Date (if applicable) CC: Renate Pelayo MD OPERATIVE REPORT - Observed: 04/20/2018 Status: F Source: [facility] 7:40 AM [facility] REPOSITORY [facility] Medical Records Department [address] [place] [address] Operative Report - Endoscopy MR#: [id number] Acct: [id number] Name: ALLIE THOMASON Rep #: [id number] : 1950 68 From: Capo Mcneal MD PCP: Renate Pelayo MD Status: REG [facility] Patient Name: Allie Thomason Procedure Date: 04/20/2018 7:12 AM Date of : 1950 Age: 68 Procedure: Upper GI endoscopy Indications: Suspected gastro-esophageal reflux disease Providers: Capo Mcneal MD Referring MD: Capo Mcneal MD Medicines: Midazolam 3 mg IV, Meperidine 75 mg IV Complications: No immediate complications. Procedure: Pre-Anesthesia Assessment: - Prior to the procedure, a History and Physical was performed, and patient medications and allergies were reviewed. The patient's tolerance of previous anesthesia was also reviewed. The risks and benefits of the procedure and the sedation options and risks were discussed with the patient. All questions were answered, and informed consent was obtained. Prior Anticoagulants: The patient has taken no previous anticoagulant or antiplatelet agents. ASA Grade Assessment: II - A patient with mild systemic disease. After reviewing the risks and benefits, the patient was deemed in satisfactory condition to undergo the procedure. After obtaining informed consent, the endoscope was passed under direct vision. Throughout the procedure, the patient's blood pressure, pulse, and oxygen saturations were monitored continuously. The gastroscope was introduced through the mouth, and advanced to the second part of duodenum. The upper GI endoscopy was accomplished without difficulty. The patient tolerated the procedure well. Moderate Sedation: Moderate (conscious) sedation was personally administered by the endoscopist. The following parameters were monitored: oxygen saturation, heart rate, blood pressure, and response to care. Total physician intraservice time was 15 minutes. Scope In: 7:22:03 AM Scope Out: 7:31:25 AM Total Procedure Duration Time 0 hours 9 minutes 22 seconds Findings: LA Grade A (one or more mucosal breaks less than 5 mm, not extending between tops of 2 mucosal folds) esophagitis with no bleeding was found 35 cm from the incisors. Biopsies were taken with a cold forceps for histology. The Z-line was regular and was found 35 cm from the incisors. A medium-sized hiatal hernia was present. The entire examined stomach was normal. Biopsies were taken with a cold forceps for histology. The examined duodenum was normal. A medium-sized hiatal hernia was present. The LESTER capsule with delivery system was introduced through the mouth and advanced into the esophagus, such that the LESTER pH capsule was positioned 29 cm from the incisors, which was 6 cm proximal to the GE junction. The LESTER pH capsule was then deployed and attached to the esophageal mucosa. The delivery system was then withdrawn. Endoscopy was utilized for probe placement and diagnostic evaluation. Impression: - LA Grade A reflux esophagitis. Biopsied. - Z-line regular, 35 cm from the incisors Successfully placed Lester probe. - Medium-sized hiatal hernia. - Normal stomach. Biopsied at the antrum - Normal examined duodenum. Recommendation: - Discharge patient to home. - Resume previous diet. - Continue present medications. - Return to my office in 1 week. Procedure Code(s): --- Professional --- 65596, Esophagogastroduodenoscopy, flexible, transoral; with biopsy, single or multiple 85897, 59, Moderate sedation services provided by the same physician or other qualified health care information associate performing the diagnostic or therapeutic service that the sedation supports, requiring the presence of an independent trained observer to assist in the monitoring of the patient's level of consciousness and physiological status; initial 15 minutes of intraservice time, patient age 5 years or older Diagnosis Code(s): --- Professional --- K21.0, Gastro-esophageal reflux disease with esophagitis K44.9, Diaphragmatic hernia without obstruction or gangrene CPT copyright 2017 [employer]. All rights reserved. The codes documented in this report are preliminary and upon hiv nurse review may be revised to meet current compliance requirements. Capo Mcneal MD 04/20/2018 7:39:30 AM This report has been signed electronically. Number of Addenda: 0 Note Initiated On: 04/20/2018 7:12 AM 04/20/18 0739 Date Capo Mcneal MD Cosign Signature: Date (if indicated) CC: Renate Pelayo MD; Capo Mcneal MD Date Dictated: 04/20/18711 Date Transcribed: Fabric Worker Supervisor: MICHAEL Signed GASTRIC BIOPSY Observed: 04/20/2018 Status: F Source: [place] 12:00 AM [facility] REPOSITORY Patient: ALLIE THOMASON : 1950 (68/F) Acct Num: [id number] Phys: Fredis DELVALLE,Capo Unit Num: [id number] Loc: EN Specimen: [id number] Received: 04/20/181107 Spec Type: Gastric Bx TISSUES 1 TISSUES: A. Gastric mucous membrane B. Esophageal mucous membrane COMMENT A. The results of immunohistochemistry for Helicobacter pylori will be reported separately ([id number]). GROSS DESCRIPTION A - Received in fixative is one container labeled with the patient's name and designated antral biopsy. The specimen consists of one irregular fragment of light quinn soft tissue that measures 0.4 x 0.3 x 0.1 cm. The specimen is totally submitted in one cassette. B - Received in fixative is one container labeled with the patient's name and designated distal esophageal biopsy. The specimen consists of multiple irregular fragments of light quinn soft tissue that in aggregate measure 0.8 x 0.2 x 0.1 cm. The specimen is totally submitted in one cassette. / SJ:carole TC:3 CPT: 66779 x2 HEADER OPERATION: EGD - PH probe (MOD) PRE-OP DIAGNOSIS: GERD, esophagitis TISSUE SUBMITTED: A - Antral biopsy for histo and H. pylori, B - Distal esophagus biopsy MICROSCOPIC DESCRIPTION Slides are reviewed. A. The specimen shows fragments of gastric mucosa with chronic inflammatory cell infiltrates in the lamina propria consisting of lymphocytes and plasma cells, consistent with mild chronic gastritis. MICROSCOPIC DIAGNOSIS A. Antral biopsy: Mild gastritis. See microscopic description and comment. B. Distal esophageal biopsy: Fragments of squamous mucosa with chronic inflammation. CHARO:carole 04/21/18 Signed Shaka Barr 04/21/18 <signature on file> Performed By: #### PGASB #### [facility] [address]. [place], [place], [address] IMMUNOHISTOCHEMISTRY Observed: 04/20/2018 Status: F Source: [facility] 12:00 AM [facility] REPOSITORY Patient: ALLIE THOMASON : 1950 (68/F) Acct Num: [id number] Phys: Fredis DELVALLE,Capo Unit Num: [id number] Loc: EN Specimen: [id number] Received: 04/21/181116 Spec Type: IMMUNO TISSUES 1 TISSUES: A. Stomach, NOS SPECIMEN INFORMATION: Tissue Source: A - Antral biopsy Clinical Info: GERD, esophagitis Specimen Number: [id number] CPT code: 98617 METHODOLOGY: Deparaffinized sections of prefer/formalin-fixed tissue or PAP/DQ stained slides are incubated with monoclonal/polyclonal antibodies/oligonucleotide probes. Localization is made via biotin free immunoperoxidase method. Appropriate controls are performed and reacted as expected. Results on target cell population are indicated in the following table: RESULTS: ANTIBODY / CLONE RESULT Block A H Pylori (polyclonal) Negative These tests were developed and their performance characteristics determined by [facility]. They may not have been cleared or approved by the U.S. Food and Drug Administration. The FDA has determined that such clearance or approval is not necessary. INTERPRETATION: A. Antral biopsy: Negative for Helicobacter pylori organisms. SJ:maranda 04/21/18 PHYSICIAN AND INSTITUTION [address] [address] Signed Shaka Barr 04/21/18 <signature on file> Performed By: #### PIMM #### [facility] [address] [place] [address]. [place], [place], [address] SURGERY VISIT REPORT Observed: 03/31/2018 Status: F Source: [facility] 4:18 PM [facility] REPOSITORY [facility] [address] [place] [address]. [address] [place], [place] [address] OFFICE VISIT Date of Service: 03/31/18 MR#: [id number] Acct: [id number] Name: ALLIE THOMASON Rep #: [id number] : 1950 Provider: Capo Mcneal MD Age/Sex: 68/F Location: [facility] Status: Signed Intake Vital Signs03/31/18 Height 5 ft 03/31/18 Weight: 134 lb 5 oz 03/31/18 Body Mass Index (BMI) 26.2 03/31/18 Blood Pressure 144/87 H Intake Visit Reasons: C-Scope consult dx heartburn Chief Complaint: GERD, esophageal burning Correctional Counselor Required: No Is patient in pain?: No Allergies bupropion [From Wellbutrin] Adverse Reaction (Intermediate, Verified 03/31/18 14:35) tachycardia Medications Ascorbic Acid [Vitamin C] 500 mg PO DAILY 07/16/17 [History Confirmed 03/31/18] Citalopram [Celexa] 20 mg PO DAILY 07/16/17 [History Confirmed 03/31/18] Lamotrigine [Lamictal Xr] 100 mg PO DAILY 07/16/17 [History Confirmed 03/31/18] Melatonin 5 mg PO QHS 07/16/17 [History Confirmed 03/31/18] cholecalciferol (vitamin D3) 1,000 unit capsule 1,000 unit PO DAILY 03/31/18 [History Confirmed 03/31/18] multivitamin tablet 1 tab PO DAILY 03/31/18 [History Confirmed 03/31/18] Is last menstrual period known: No Post menopausal: Yes Patient : No PFSH Medical History GERD (gastroesophageal reflux disease) (Acute) Anxiety and depression (Acute) GERD (gastroesophageal reflux disease) (Acute) Osteoarthritis (Acute) HTN (hypertension) (Chronic) Surgical History History of carpal tunnel release (Acute) History of colonoscopy (Acute) History of esophagogastroduodenoscopy (EGD) (Acute) History of knee surgery (Acute) History of tonsillectomy and adenoidectomy (Acute) Status post trigger finger release (Acute) Family History Father Diabetes CAD (coronary artery disease) Hypertension Asthma CVA (cerebral vascular accident) Social History Smoking Status: Former smoker HPI HPI HPI: ALLIE THOMASON, is a 68 F who presents to the office today for surgical consultation regarding gastroesophageal reflux disease. Patient's primary care physician Dr. Renate Pelayo and the patient is referred because of intractable GERD. A written copy of my surgical consult palpitations were returned to Dr. Pelayo. I have assisted the patient in June 2017 with a colonoscopy which fortunately was normal. The patient resents today noting that for over a year she has been having problems with heartburn retrosternal discomfort constant pain worsened at night with being awakened with coughing and hoarse throat and voice. She has tried recently [id number] Prilosec without distinct change. She has to eat toast and milk to try to calm down the discomfort. Now admittedly looking back through some of her records it appears that she has actually had problems for a more extended period of time. I have record of a upper endoscopy performed at the [facility] on December 09, 2012 which demonstrated at that time a hiatal hernia. Gastritis. Final pathology showed focal active duodenitis. Chronic inactive gastritis. H. pylori was negative. The midesophagus was unremarkable. He would appear however that her current symptoms have significantly escalated. ROS General General: No weight change, appetite, fatigue, colon cancer, breast cancer or weakness HEENT HEENT: No difficulty swallowing, eye injury, eye surgery, swollen glands or hoarseness Endo Endocrine: No thyroid disease, diabetes mellitus, thyroid cancer, Hair loss, heat intolerance or cold intolerance Musc Musculoskeletal: Yes arthritis; no back problems, rheumatoid arthritis, gout or joint pain Cardio Cardiovascular: Yes high blood pressure; no murmur, pacemaker, heart disease, atrial fibrillation, heart attack, heart stent, palpitations, shortness of breat with exertion or chest pain Psych Psychiatric: Yes depression and anxiety; no hearing voices Resp Respiratory: No shortness of breath, No sleep apnea, Yes cough, No COPD, No asthma, No emphysema, No wheezing Gastro Gastrointestinal: No abdominal pain, No nausea or vomiting, No diarrhea, No constipation, No blood in stool, Yes acid reflux, No hemorrhoids, No ulcers, No gallbladder problem, No black,tarry stools Medardo Hematologic: No blood thinners, No blood disorders, No bleeding, No anemia, No blood clots Neuro Neurologic: No weakness Exam Const General: cooperative, healthy appearing Nutritional Appearance: average body habitus Orientation: alert, awake [facility] Head: normal to inspection Eyes General: appearance normal, both eyes and all related structures Neck Neck: normal visual inspection Resp Effort AND Inspection: normal respiratory effort Auscultation: clear to auscultation bilaterally Cardio Rate: regular rate Rhythm: regular rhythm Heart Sounds: no murmurs GI Palpation: soft, no hepatosplenomegaly Auscultation: normal bowel sounds Skin General: no rashes or lesions noted Neuro Cranial Nerves: CN's II-XI intact bilaterally Extrem General: no calf tenderness Psych Affect: normal affect Assessment AND Plan Problems 1. Gastroesophageal reflux disease, esophagitis presence not specified K21.9 Plan Findings are certainly quite suspicious for gastroesophageal reflux disease likely with esophagitis. Suspect hiatal hernia. The patient has just initiated omeprazole therapy 20 mg daily but states that this has had absolutely no improvement I recommend for her a esophagogastroduodenoscopy with biopsy as appropriate. I would anticipate antral and likely distal esophageal and may be mid esophageal biopsies as well. I would anticipate placing a pH probe as I do believe that she has clinically significant reflux disease. Currently albeit on a low-dose she does not appear to be responding well to omeprazole medication. She is aware of the technique, benefits, risks, alternatives. She has had an opportunity to ask and have questions answered. We will schedule and proceed at her discretion. In the interim I have asked her to double her omeprazole therapy to 20 mg p.o. twice daily. Because of the pH probe she will need to hold that around the time of her procedure. The patient states that prior to her colonoscopy she had asked her IV fluids provided because she becomes vasovagal. We will have her appear an hour prior to allow for a 500 cc bolus of normal saline. Cc: Dr Renate Mcneal M.D., F.A.C.S. Coding Level of Care Code Detailed, Low Diagnoses Gastroesophageal reflux disease, esophagitis presence not specified K21.9 Esophagitis presence: esophagitis presence not specified 03/31/18 1618 <Electronically signed by Capo Mcneal MD> Date Capo Mcneal MD Cosigner Signature: Date (if applicable) CC: Renate Pelayo MD ALLERGIES ALLERGIES DATE TYPE / CODE NAME / CODE REACTION SEVERITY SOURCE 07/06/2018 Drug bupropion/F TACHYCARDIA MO [facility] Allergy/4160 [id number]([facility] [address](SNOMED XNORM) Repository CT) ENCOUNTERS ENCOUNTERS ADMIT/DISCHARGE ACCOUNT ADMITTING ENCOUNTER LOCATION SOURCE NUMBER CLASS 07/12/2018/ [id number] [facility] [place] 9 7 [facility] ing:RQ0Bmsv: Repository [id number]: 1 07/06/2018/ [id number] Ambulatory BMSBuilding:B [place] 9 7 [place].[facility] Repository 05/24/2018/ [id number] Ambulatory BMSBuilding:B [place] 8 8 [facility] Repository 05/11/2018/ [id number] Ambulatory [place] 8 8 [facility] ing:EN Repository 05/11/2018/ [id number] Ambulatory BMSBuilding:B [place] 8 9 MS.[facility] Repository 04/27/2018/ [id number] Ambulatory BMSBuilding:B [place] 8 3 [facility] Repository 04/20/2018/ [id number] Ambulatory [place] 8 9 [facility] ing:ENRoom: Repository AC11 04/20/2018/ [id number] Ambulatory BMSBuilding:B [place] 8 4 MS.[facility] Repository 03/31/2018/ [id number] Ambulatory BMSBuilding:B [place] 8 3 [facility] Repository 07/28/2017 [id number] Ambulatory BMSBuilding:B [place] 8 MS.[facility] Repository PAYERS PAYERS ENCOUNTER GUARANTOR PAYER SUBSCRIBER SOURCE 07/12/2018 ALLIE Erickson [id number] Insurance:MEDICARE ZEMANCIKDOB[place] [facility] [id number] Number: Repository [id number]: [phone] [id number] [phone] (HP) Date:2018-05-25 07/12/2018 Secondary ALLIE A [place] Insurance:MEDICAL ZEMANCIKDOB: [address]07-20UNK Hospital Number: Repository [id number] Date:3660-72-79MS [address] [address]CK: 07/12/2018 Tertiary NOT GIVENUNK [place] Insurance:SELF PAY [facility] Number: Effective Repository Date:2018-05-25 07/06/2018 ALLIE A Primary ALLIE A [place] [id number] Insurance:MEDICARE ZEMANCIKDOB: [address] Number: Repository [id number]: 330 [id number] [phone] () Date:2018-05-25 07/06/2018 Secondary ALLIE A [place] Insurance:MEDICAL ZEMANCIKDOB: [address] Hospital Number: Repository [id number] Date:3164-61-64ZV [address] [address]YU: 07/06/2018 Tertiary NOT GIVENUNK [place] Insurance:SELF PAY [facility] Number: Effective Repository Date:2018-07-02 05/24/2018 ALLIE A Primary ALLIE A [place] [id number] Insurance:MEDICARE ZEMANCIKDOB: [address] Number: Repository [id number]: 330 [id number] [phone] (HP) Date:2018-05-19 05/24/2018 Secondary ALLIE A [place] Insurance:MEDICAL ZEMANCIKDOB: [address]UNK Hospital Number: Repository [id number] Date:3600-87-20WN [address] [address]AW: 05/24/2018 Tertiary NOT GIVENUNK [place] Insurance:SELF PAY [facility] Number: Effective Repository Date:2018-05-19 05/11/2018 DEBORAH Fitzgerald Primary ALLIE A [place] [id number] Insurance:MEDICARE ZEMANCIKDOB: [facility] [id number] Number: Repository [id number]: 330 [id number] [phone] (HP) Date:2018-04-28 05/11/2018 Secondary ALLIE A [place] Insurance:MEDICAL ZEMANCIKDOB: [facility] [id number] Hospital Number: Repository [id number] Date:8627-35-68FM[address] [address]UT: 05/11/2018 Tertiary NOT GIVENUNK [place] Insurance:SELF PAY [facility] Number: Effective Repository Date:2018-04-28 05/11/2018 DEBORAH Fitzgerald Primary ALLIE A [place] [id number] Insurance:MEDICARE ZEMANCIKDOB: [facility] [id number] Number: Repository [id number]: 330 [id number] [phone] (HP) Date:2018-04-28 05/11/2018 Secondary ALLIE A [place] Insurance:MEDICAL ZEMANCIKDOB: [facility] [id number] Hospital Number: Repository [id number] Date:2507-74-68GD[address] [address]WP: 05/11/2018 Tertiary NOT GIVENUNK [place] Insurance:SELF PAY [facility] Number: Effective Repository Date:2018-05-11 04/27/2018 DEBORAH Fitzgerald Primary ALLIE A [place] [id number] Insurance:MEDICARE ZEMANCIKDOB: [facility] [id number] Number: Repository [id number]: 330 [id number] [phone] (HP) Date:2018-04-20 04/27/2018 Secondary ALLIE A [place] Insurance:MEDICAL ZEMANCIKDOB: [address]07-[address]UNK Hospital Number: Repository [id number] Date:8716-89-76JV [facility] [address] [address]HE: 04/27/2018 Tertiary NOT GIVENUNK [place] Insurance:SELF PAY [facility] Number: Effective Repository Date:2018-04-27 04/20/2018 DEBORAH Fitzgerald Primary ALLIE A [place] [id number] Insurance:MEDICARE ZEMANCIKDOB: [facility] [id number] Number: Repository [id number]: 330 [id number] [phone] (HP) Date:2018-04-06 04/20/2018 Secondary ALLIE A [place] Insurance:MEDICAL ZEMANCIKDOB: [facility] [id number] Hospital Number: Repository [id number] Date:7704-14-90MN [address] [address]ZC: 04/20/2018 Tertiary NOT GIVENUNK [place] Insurance:SELF PAY [facility] Number: Effective Repository Date:2018-04-06 04/20/2018 DEBORAH Fitzgerald Primary ALLIE A [place] [id number] Insurance:MEDICARE ZEMANCIKDOB: [facility] [id number] Number: Repository [id number]: 330 [id number] [phone] (HP) Date:2018-04-06 04/20/2018 Secondary ALLIE A [place] Insurance:MEDICAL ZEMANCIKDOB: [facility] [id number] Hospital Number: Repository [id number] Date:9570-30-93VA [address] [address]UD: 04/20/2018 Tertiary NOT GIVENUNK [place] Insurance:SELF PAY [facility] Number: Effective Repository Date:2018-04-20 03/31/2018 DEBORAH Fitzgerald Primary ALLIE A [place] [id number] Insurance:MEDICARE ZEMANCIKDOB: [facility] [id number] Number: Repository [id number]: [phone] [id number] [phone] () Date:2018-03-25 03/31/2018 Secondary ALLIE A [place] Insurance:MEDICAL ZEMANCIKDOB: [facility] [id number] [facility] Number: Repository [id number] Date:6194-99-47NS[address] [address]AA: 03/31/2018 Tertiary NOT GIVENUNK [place] Insurance:SELF PAY [facility] Number: Effective Repository Date:2018-03-25 07/28/2017 Deborah Fitzgerald Primary NOT GIVENUNK [place] [id number] Insurance:SELF PAY [place], [place] Number: Effective Repository [phone]: [phone]) Date:2017-05-28 [phone] ()
== END 2018-07-13 14:05 | disposition home or self-care (01) ==
LOC: SDC 10:20
PROVIDERS: Physician Assistant; Admitting Provider Surgery; Family Provider Family Medicine; PCP Family Medicine; Referring Provider Surgery; Visit Provider Surgery
PROC: (CPT 43325; principal; 2018-07-12 06:55)
DX: K21.0 Gastro-esophageal reflux disease with esophagitis (principal); K44.9 Diaphragmatic hernia without obstruction or gangrene; Z87.891 Personal history of nicotine dependence; I10 Essential (primary) hypertension; I47.1 Supraventricular tachycardia; E78.00 Pure hypercholesterolemia, unspecified; M19.90 Unspecified osteoarthritis, unspecified site; Z79.899 Other long term (current) drug therapy
CPT/HCPCS: 00790; 43281; 36415; 80048; 82962; 85025; 93005; 96361; 96372; 96374; 99218; J7040; J7120; C1768; G0378; G0379; J2405

== ENCOUNTER 2018-07-22 11:32 | Day surgery (SDC) | payer MEDICARE, OTHER, SELFPAY ==
[2018-07-12 11:43] VITALS: BMI 26.7
[2018-07-22 11:56] VITALS: BP 136/78; PULSE 78; RESP 18; TEMP 36.6; O2SAT 99; BMI 26.2
--- NOTE | 2018-07-22 14:34 | OP.ENDO_ITS ---
Patient Name: Allie Thomason Procedure Date: 07/22/2018 1:40 PM Date of : 1950 Age: 68 Procedure: Upper GI endoscopy Indications: Dysphagia Providers: Capo Mcneal MD Medicines: See the Anesthesia note for documentation of the administered medications Patient Profile: She is status post laparoscopic antireflux surgery recently. Complications: No immediate complications. Procedure: Pre-Anesthesia Assessment: - Prior to the procedure, a History and Physical was performed, and patient medications and allergies were reviewed. The patient's tolerance of previous anesthesia was also reviewed. The risks and benefits of the procedure and the sedation options and risks were discussed with the patient. All questions were answered, and informed consent was obtained. Prior Anticoagulants: The patient has taken no previous anticoagulant or antiplatelet agents. ASA Grade Assessment: II - A patient with mild systemic disease. After reviewing the risks and benefits, the patient was deemed in satisfactory condition to undergo the procedure. After obtaining informed consent, the endoscope was passed under direct vision. Throughout the procedure, the patient's blood pressure, pulse, and oxygen saturations were monitored continuously. The gastroscope was introduced through the mouth, and advanced to the antrum of the stomach. The upper GI endoscopy was accomplished without difficulty. The patient tolerated the procedure well. Scope In: 2:14:30 PM Scope Out: 2:28:19 PM Total Procedure Duration Time 0 hours 13 minutes 49 seconds Findings: The examined esophagus was normal. One extrinsic stenosis was found 39 cm from the incisors. This stenosis was mildly severe and. A TTS dilator was passed through the scope. Dilation with an 18-19-20 mm balloon dilator was performed to 20 mm. The dilation site was examined and showed moderate improvement in luminal narrowing. Estimated blood loss: none. Impression: - Normal esophagus. - Extrinsic narrowing of the esophagus. Dilated. Suggestion of slight tightness of hiatus repair, wrap appeared very normal and correct. No difficulty in advancing scope into the stomach No irritation or blood upon dilatation to 20mm - No specimens collected. Recommendation: - Discharge patient to home. - Resume previous diet. - Return to my office in 1 week. - Continue present medications. Procedure Code(s): --- Professional --- 34208, 52, Esophagogastroduodenoscopy, flexible, transoral; with transendoscopic balloon dilation of esophagus (less than 30 mm diameter) Diagnosis Code(s): --- Professional --- K22.2, Esophageal obstruction R13.10, Dysphagia, unspecified CPT copyright 2017 [employer]. All rights reserved. The codes documented in this report are preliminary and upon microbiology soil scientist review may be revised to meet current compliance requirements. Capo Mcneal MD 07/22/2018 2:34:17 PM This report has been signed electronically. Number of Addenda: 0 Note Initiated On: 07/22/2018 1:40 PM
[2018-07-22 14:36] VITALS: BP 128/92; BP 136/78; PULSE 80; RESP 16; TEMP 36.6; O2SAT 97
[2018-07-22 14:40] VITALS: BP 136/78; BP 142/88; PULSE 76; RESP 16; O2SAT 100
[2018-07-22 14:45] VITALS: BP 136/78; BP 140/88; PULSE 75; RESP 16; O2SAT 99
[2018-07-22 14:51] VITALS: BP 136/78; BP 136/88; PULSE 72; RESP 16; TEMP 36.1; O2SAT 99
[2018-07-22 15:23] VITALS: BP 136/78
== END 2018-07-22 15:23 | disposition home or self-care (01) ==
LOC: EN 11:33 → AC 11:33
PROVIDERS: Family Provider Family Medicine; PCP Family Medicine; Referring Provider Surgery; Visit Provider Surgery
PROC: 0DJ08ZZ Inspection of Upper Intestinal Tract, Via Natural or Artificial Opening Endoscopic (ICD-10-PCS; CPT 43235; principal; 2018-07-22 13:25)
DX: K22.2 Esophageal obstruction (principal); R13.10 Dysphagia, unspecified; Z98.890 Other specified postprocedural states; Z79.899 Other long term (current) drug therapy; K21.9 Gastro-esophageal reflux disease without esophagitis; F41.9 Anxiety disorder, unspecified; I10 Essential (primary) hypertension; M19.90 Unspecified osteoarthritis, unspecified site; Z87.891 Personal history of nicotine dependence
CPT/HCPCS: 43249; J7030; J7120

== ENCOUNTER 2018-07-30 10:47 | Emergency (ER) | payer MEDICARE, OTHER, SELFPAY ==
[2018-07-30 10:47] VITALS: BP 163/96
[2018-07-30 10:48] VITALS: BP 163/96; PULSE 72; RESP 14; TEMP 36.9; O2SAT 98; BMI 25.4
--- NOTE | 2018-07-30 10:53 | EKG12_ITS ---
Test Reason : CP Blood Pressure : / mmHG Vent. Rate : 069 BPM Atrial Rate : 069 BPM P-R Int : 152 ms QRS Dur : 074 ms QT Int : 404 ms P-R-T Axes : 044 028 046 degrees QTc Int : 432 ms Normal sinus rhythm Normal ECG Confirmed by CRISTINO COMBS MD ([id number]), assistant editor SHARLENE MELENDEZ ([id number] on 08/02/2018 10:20:34 AM Referred By: CHELI Confirmed By:CRISTINO COMBS MD
--- NOTE | 2018-07-30 10:53 | RAD_ITS ---
STUDY: X-RAY CHEST REASON FOR EXAM: Female, 68 years old. Chest pain. TECHNIQUE: Single AP portable view of the chest. COMPARISON: None. FINDINGS: EKG electrodes are seen. Mild increased markings at the lung bases suggestive of atelectasis and/or scarring. There is no demonstrated pleural abnormality. Normal size heart. Normal mediastinum and dave. Normal visualized pulmonary arteries. Normal visualized aortic arch and descending thoracic aorta. There are diffuse degenerative changes of the visualized thoracic spine. Normal visualized ribs, clavicles, and shoulders. There is no demonstrated abnormality of the visualized soft tissue structures of the upper abdomen. RAD/Chest 1 View (Portable) IMPRESSION: Mild degree of increased markings at the lung bases suggestive of atelectasis and/or scarring. Electronically Signed: Jun Hanson MD at 11:10 EST , Service support ,
[2018-07-30 11:14] LABS: Absolute Lymphocyte Count 1.61 X10^3/ul (0.83-4.51); Absolute Neutrophil Count 4.6 X10^3/uL (2.0-7.7); Basophil# 0.04 X10^3/uL; Basophil% 0.6 % (0-1); Eosinophil# 0.26 X10^3/uL; Eosinophils% 3.6 % (0-5); Hematocrit 43.1 % (37-47); Hemoglobin 14.1 g/dl (12.0-15.0); Lymphocyte # 1.61 X10^3/ul (4.0); Lymphocyte % 22.4 % (19-41); Mean Corp Hgb Conc 32.7 g/gl (32-36); Mean Corpuscular Hgb 29.4 pg (27.0-32.0); Mean Corpuscular Volume 89.8 fL (81-99); Mean Platelet Vol. 9.5 fl (6.2-12.0); Monocyte# 0.68 X10^3/uL; Monocyte% 9.4 % (0-10); Neutrophil # 4.59 X10^3/uL (2.7-7.7); Neutrophil % 63.7 % (47-70); POSITIVE COUNT NO; POSITIVE DIFFERENTIAL NO; POSITIVE MORPHOLOGY NO; Platelet Count 366 K/mm3 (150-450); RBC Distribution Width CV 12.7 % (11.6-14.6); RBC Distribution Width SD 41.3 fl (35.1-43.9); White Blood Count 7.2 K/mm3 (4.4-11.0)
[2018-07-30 11:30] LABS: Anion Gap 6 (5-15); BUN 14 mg/dL (7-18); Calcium,Total 9.3 mg/dL (8.5-10.1); Chloride 106 mmol/L (98-107); Creatinine, Serum 0.94 mg/dL (0.55-1.02); EST Glomerular Filtration Rate 63 mL/min (>60); Est Glom Filt Rate - Afr Amer 77 mL/min (>60); Estimated Creatinine Clearance 41.14 ml/min; Glucose 94 mg/dL (74-106); Potassium 4.1 mmol/L (3.5-5.1); Sodium Level 140 mmol/L (136-145)
--- NOTE | 2018-07-30 12:42 | ED.VISSUMM ---
- ER Visit Summary Date of Service: 07/30/18 Chief Complaint: Chest pain History of Present Illness: The patient is a 68 F who presents with midsternal chest pain that is currently resolved. Patient states she was walking around a track and developed sharp substernal chest pain. She did not feel short of breath. She states pain was already starting to improve before EMS arrived and completely resolved shortly after their arrival. Patient did have a Nichole fundoplication several weeks ago. Patient states she still not able to eat solids. She has been following up with her surgeon. She reports having a normal stress test prior to surgery. Physical Examination: Vital signs include a blood pressure 163/96, otherwise unremarkable. Head neck examination normal. Heart is regular rate and rhythm. Lungs sounds clear. Abdomen is soft nontender. She is healing surgical incisions without sign of infection. Lower extremity examination was no calf tenderness or edema. Test Results: EKG is sinus at 69 with no sign of acute edema. CBC and chemistry studies normal. Troponin negative. Chest x-ray shows mild increased markings at the bases suggestive of atelectasis or scarring. Emergency Department Course and Treatment: Patient had received aspirin with EMS. On repeat evaluation she has no complaints. She has not had any recurrent pain. She ambulates in the ED without difficulty. She believes this is secondary to her prior surgery. This is not sound cardiac in nature. She has no findings consistent with pulmonary embolism. Treatment Plan: [] Disposition: Discharge Impression: Atypical chest pain This note was generated with [employer] dictation software. It may contain incorrect words, spelling, and punctuation that were not noted in review of the chart prior to signing ED Disposition - Plan for ED Patient: Disposition: Home or Assisted Living Instructions: ED Chest Pain Atypical Unkn Cause Referrals: Renate Pelayo MD [Primary Care Provider] - 5-7 Days
[2018-07-30 12:55] VITALS: BP 124/63; PULSE 78; RESP 16; RESP 18; O2SAT 97
== END 2018-07-30 12:56 | disposition home or self-care (01) ==
PROVIDERS: Emergency Provider Emergency Medicine; Family Provider Family Medicine; PCP Family Medicine
DX: R07.89 Other chest pain (principal); Z98.890 Other specified postprocedural states; Z87.891 Personal history of nicotine dependence
CPT/HCPCS: 71045; 80048; 84484; 85025; 93005; 99285; A4216

== ENCOUNTER → 2018-11-22 | Outpatient (CLI) | payer MEDICARE, OTHER, SELFPAY ==
--- NOTE | 2018-11-22 08:40 | RAD_ITS ---
STUDY: X-RAY - ESOPHAGUS (BARIUM SWALLOW) WITH FLUOROSCOPY REASON FOR EXAM: Female, 68 years old. Occasional gastroesophageal reflux. Prior Nichole fundoplication. TECHNIQUE: 18 view(s) of the esophagus were obtained following swallowing of barium. FLUOROSCOPY TIME (if supplied): (0:35) minutes/seconds COMPARISON: None. FINDINGS: There is no demonstrated esophageal foreign body. There is no demonstrated stricture or mucosal abnormality. Normal gastroesophageal junction, without a demonstrated hiatal hernia. The patient is status post Pepe fundoplication. The patient ingested a 12 mm tablet of barium without any difficulty. Normal visualized aortic arch and descending thoracic aorta. Normal visualized pulmonary parenchyma. Normal visualized osseous structures of the thorax. RAD/Esophagus Only IMPRESSION: Normal plain film x-ray examination (barium swallow) of the esophagus. Electronically Signed: Jun Hanson, at 15:13 EDT , Service support ,
== END | disposition home or self-care (01) ==
LOC: RAD 08:32
PROVIDERS: Family Provider Family Medicine; PCP Family Medicine; Referring Provider Internal Medicine Gastroenterology; Visit Provider Internal Medicine Gastroenterology
DX: K21.9 Gastro-esophageal reflux disease without esophagitis (principal)
CPT/HCPCS: 74220

== ENCOUNTER → 2021-10-25 | Outpatient (CLI) | payer MEDICARE, OTHER, SELFPAY ==
--- NOTE | 2021-10-25 13:31 | CT_ITS ---
STUDY: CT BRAIN AND SINUSES WITHOUT CONTRAST REASON FOR EXAM: Female, 71 years old. CHRONIC SINUSITIS RADIATION DOSAGE (If Supplied By Facility): CTDIvol = ( 28.14 ) mGy, DLP = ( 707.50 ) mGycm TECHNIQUE: Transaxial CT imaging of the brain was performed without administration of contrast. Individualized dose optimization techniques were used for this CT. COMPARISON: No relevant priors. FINDINGS: CT BRAIN Normal soft tissue structures. Normal calvarium. Normal size ventricles and extra-axial spaces for the patient''s age. Normal white matter tracts of the cerebral hemispheres. Normal basal ganglia and thalami. Normal brainstem. Normal cerebellum. There is no intracranial hemorrhage. There are no findings of an acute ischemic infarction. CT SINUSES Post Surgical Changes: None. Frontal Sinus and Recess: Minimal mucosal thickening of the frontal sinus. Ethmoidal Sinuses: Partial opacification of the ethmoid sinuses bilaterally. There is evidence of a thinning of the bony septations. Maxillary Sinuses: Partial opacification of the maxillary sinuses along the inferior portion. Ostiomeatal Complex: Clear. Sphenoid Sinus: Minimal mucosal thickening of the right sphenoid sinus. Sphenoethmoidal Recess: Clear. Nasal Turbinate (Right): Middle Turbinate (Right): Normal. Middle Turbinate (Left): Normal. Inferior Turbinate (Right): There is hypertrophy of the right inferior turbinate. Inferior Turbinate (Left): Normal. Nasal Septum: Midline. Nasal Airway: Clear. Orbits: Normal. CT/Sinus/Facial Bone IMPRESSION: RUTH sinusitis as described. Electronically Signed: Jun Hanson MD at 15:10 EDT ,
== END | disposition home or self-care (01) ==
LOC: CT 13:23
PROVIDERS: PCP Family Medicine; Referring Provider Otolaryngology; Visit Provider Otolaryngology
DX: J32.9 Chronic sinusitis, unspecified (principal)
CPT/HCPCS: 70486

== ENCOUNTER 2022-03-26 07:36 | Day surgery (SDC) | payer MEDICARE, OTHER, SELFPAY ==
[2022-03-26] VITALS (8 sets, daily range): BP systolic 103–147; BP diastolic 69–83; PULSE 66–72; RESP 16–18; TEMP 36.1–36.4; O2SAT 96–98; BMI 25.4
--- NOTE | 2022-03-26 | EGD_PTH ---
PATIENT: BRANDEN KATE LOC: EN U#:[id number] AGE/SX: 72/F ROOM: RE03/26/[address]: Dr. Bal Gonsalves DO : 1950 BED: DIS: 03/26/2022 SPEC #: [id number] RECD: 03/26/22 13:57 STATUS: CARLOS REDon #: [id number] JASBIR: 03/26/22 00:[address]: Bal Gonsalves DEPT: SURGICAL PATHOLOGY RECD BY: Soy Echols ENTERED: 03/27/22 08:50 SP TYPE: EGD BIOPSY [facility] DR: Dr. Renate Pelayo MD Tissues: A - Duodenum, NOS B - Esophageal mucous membrane Procedures: Special Stain Group II Surgery Specimen Level IV Alcian Blue/PAS (control) HEADER OPERATION: EGD ([facility]) PRE-OP DIAGNOSIS: GERD TISSUE SUBMITTED: A ? Duodenum biopsy, B ? Esophagus biopsy MICROSCOPIC DIAGNOSIS A. Duodenum, biopsy: A fragment of duodenal mucosa with mild nonspecific chronic inflammation. See comment. B. 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 Chronic inflammation. Negative for dysplasia. See comment. SJ:rg 03/28/2022 COMMENT A. A fragment of gastroesophageal mucosa is also noted in the specimen. B. Alcian blue/PAS stain with matched control is used in the evaluation of the specimen. Immunohistochemistry ([id number]) for P53 and Ki-67 will be performed and results will be reported separately. MICROSCOPIC DESCRIPTION Slides are reviewed. GROSS DESCRIPTION A - Received in fixative is one container labeled with the patient's name and designated duodenum biopsy. The specimen consists of two irregular fragments of light quinn soft tissue that in aggregate measure 0.8 x 0.5 x 0.1 cm. The specimen is totally submitted in one cassette. B - Received in fixative is one container labeled with the patient's name and designated esophagus biopsy. The specimen consists of multiple irregular fragments of light quinn soft tissue that in aggregate measure 1 x 0.4 x 0.1 cm. The specimen is totally submitted in one cassette. / CHARO:carole 03/27/2022 TC:3 CPT: 67266 x2, 41981
--- NOTE | 2022-03-26 | IMM_PTH ---
PATIENT: BRANDEN KATE LOC: EN U#:[id number] AGE/SX: 72/F ROOM: RE03/26/[address]: Dr. Bal Gonsalves DO : 1950 BED: DIS: 03/26/2022 SPEC #: [id number] RECD: 03/28/22 13:23 STATUS: CARLOS REQ #: [id number] JASBIR: 03/26/22 00:[address]: Bal Gonsalves DEPT: IMMUNOHISTOCHEMISTRY RECD BY: Luana Malloy ENTERED: 03/28/22 13:24 SP TYPE: IMMUNO OT DR: Dr. Renate Pelayo MD Tissues: B - Esophagus, NOS Procedures: P53 (initial) KI-67 (add) PHYSICIAN & INSTITUTION [place] [address] SPECIMEN INFORMATION: Tissue Source: B ? Esophagus biopsy Clinical Info: GERD Specimen Number: [id number] CPT code: 66416, 89031 METHODOLOGY: Deparaffinized sections of prefer/formalin-fixed tissue or PAP/DQ stained slides are incubated with monoclonal/polyclonal antibodies/oligonucleotide probes. Localization is made via biotin free immunoperoxidase method. Appropriate controls are performed and reacted as expected. Results on target cell population are indicated in the following table: RESULTS: ANTIBODY / CLONE RESULT Block B P53 (DO-7) negative Ki-67 (30-9) positive, very low These tests were developed and their performance characteristics determined by [facility]. They may not have been cleared or approved by the U.S. Food and Drug Administration. The FDA has determined that such clearance or approval is not necessary. The above immunohistochemical/dualISH markers are ordered and reviewed by the Pathologist. INTERPRETATION: Jose Esophagus, biopsy: Negative for dysplasia. CHARO:carole 03/31/2022
[2022-03-26] MEDS: Lactated Ringers 1,000 ML 15 ML IV (08:05)
--- NOTE | 2022-03-26 08:07 | HP.PCM_ITS ---
History and Physical Date of Admission: 03/26/22 BRANDEN KATE, is a 71 F who presents to the office today for?Initial cons ult. Branden established with this clinic 12.17.21 with referral from PCP for evaluation of GERD. She has had GERD for the last 20 years but symptoms have worsened recently in relation to increased stress and depression regarding her mother?s esophageal cancer diagnosis. She has been seeking mental health services. History of Lester pH probe finding consistent with significant reflux s/p Nichole fundoplication performed by Dr. Ayanna Mcneal 07.12.2018. She then began having difficulty with dysphagia and an EGD was performed 07.22.[address] Ayanna Mcneal for dysphagia finding narrowing of the esophagus, suggestion of slight tightness of hiatal hernia repair, dilated to 20mm. Since Nichole she has had some issues with breakthrough reflux. She is not currently maintained on medication and has not trialed anything prior to this time. FH mother esophageal cancer Colonoscopy [address] Ayanna Mcneal with no abnormalities. Barium swallow 11.22.18 with no abnormality found. Exam Const General: cooperative and comfortable Nutritional Appearance: average body habitus and well nourished [facility] Head: normal to inspection Ears: hearing grossly normal bilaterally Nose: external nose normal Face and sinus: normal facial exam Mouth: oral mucosae normal Throat: posterior oropharynx normal Eyes General: appearance normal, both eyes and all related structures Neck Neck: normal visual inspection Chest Chest palpation & inspection: normal inspection of the chest and normal palpation of entire chest wall Resp Effort & Inspection: normal respiratory effort Auscultation: Bilateral: Clear to Auscultation Cardio Palpation: normal PMI Rate: regular rate Rhythm: regular rhythm GI Inspection: normal to inspection Auscultation: normal bowel sounds Percussion: normal to percussion Palpation: no hepatosplenomegaly Skin General: no rashes or lesions noted Neuro General: patient alert Extrem General: normal to inspection Psych Affect: normal affect Quality Reporting Tobacco Screening (CMS 138) Smoking Status: Former smoker Assessment and Plan Assessment and Plan (1) GERD (gastroesophageal reflux disease): ?Status:?Acute ?Plan: The plan is to perform an upper endoscopy and evaluate upper GI tract for any dehiscence.? We will also evaluate upper GI tract for Mora's esophagus and possibly any motility disorders such as eosinophilic esophagitis,, erosive esophagitis, diverticulum.? She also esophageal cancer in her mother.? We will look for any signs or symptoms of Mora's esophagus.? She was explained alternatives, risk, benefits, perforation, and .? She will have an ASA of 1. I have re-examined the patient. There are no clinical changes since date of exam.
--- NOTE | 2022-03-26 09:25 | OP.EGD_ITS ---
Patient Name: Allei Thomason Procedure Date: 03/26/2022 9:20 AM Date of : 1950 Age: 72 Procedure: Upper GI endoscopy Indications: Functional Dyspepsia, Heartburn, Suspected esophageal reflux Providers: Bal Gonsalves DO Medicines: Monitored Anesthesia Care Patient Profile: This is a 72 year old female. Refer to note in patient chart for documentation of history and physical. Patient has symptoms of chronic dyspepsia, chronic heartburn and chronic nausea. Complications: No immediate complications. Procedure: Pre-Anesthesia Assessment: - Prior to the procedure, a History and Physical was performed, and patient medications and allergies were reviewed. The patient is competent. The risks and benefits of the procedure and the sedation options and risks were discussed with the patient. All questions were answered and informed consent was obtained. Patient identification and proposed procedure were verified by the physician in the pre-procedure area. Mental Status Examination: alert and oriented. Airway Examination: normal oropharyngeal airway and neck mobility. Respiratory Examination: clear to auscultation. CV Examination: normal. Prophylactic Antibiotics: The patient does not require prophylactic antibiotics. Prior Anticoagulants: The patient has taken no previous anticoagulant or antiplatelet agents. ASA Grade Assessment: II - A patient with mild systemic disease. After reviewing the risks and benefits, the patient was deemed in satisfactory condition to undergo the procedure. The anesthesia plan was to use monitored anesthesia care (MAC). Immediately prior to administration of medications, the patient was re-assessed for adequacy to receive sedatives. The heart rate, respiratory rate, oxygen saturations, blood pressure, adequacy of pulmonary ventilation, and response to care were monitored throughout the procedure. The physical status of the patient was re-assessed after the procedure. After obtaining informed consent, the endoscope was passed under direct vision. Throughout the procedure, the patient's blood pressure, pulse, and oxygen saturations were monitored continuously. The gastroscope was introduced through the mouth, and advanced to the second part of duodenum. The upper GI endoscopy was accomplished without difficulty. The patient tolerated the procedure well. Findings: The Z-line was irregular and was found 38 cm from the incisors. Biopsies were taken with a cold forceps for histology. Verification of patient identification for the specimen was done. Estimated blood loss was minimal. Evidence of a fundoplication was found in the entire examined stomach. The wrap appeared loose. This was traversed. No gross lesions were noted in the duodenal bulb. Biopsies were taken with a cold forceps for histology. Verification of patient identification for the specimen was done. Estimated blood loss was minimal. Impression: - Z-line irregular, 38 cm from the incisors. Biopsied. - A fundoplication was found. The wrap appears loose. - No gross lesions in the duodenal bulb. Biopsied. Recommendation: - Written discharge instructions were provided to the patient. - The signs and symptoms of potential delayed complications were discussed with the patient. - Patient has a contact number available for emergencies. - Return to normal activities tomorrow. - Resume previous diet. - Continue present medications. - Await pathology results. - Repeat upper endoscopy in 1 year for surveillance based on pathology results. Procedure Code(s): --- Professional --- 61208, Esophagogastroduodenoscopy, flexible, transoral; with biopsy, single or multiple CPT copyright 2017 [employer]. All rights reserved. The codes documented in this report are preliminary and upon allied health instructor review may be revised to meet current compliance requirements. Bal Gonsalves DO 03/26/2022 9:25:05 AM This report has been signed electronically. Number of Addenda: 0 Note Initiated On: 03/26/2022 9:20 AM
--- NOTE | 2022-03-26 09:26 | OP.CCLET_ITS ---
03/26/2022 Renate Pelayo [address] [place] [address] Re : Upper GI endoscopy procedure for Allie Thomason Dear Dr. Pelayo This procedure was performed on Saturday, March 26, 2022. My impressions and recommendations are as follows: Impressions : - Z-line irregular, 38 cm from the incisors. Biopsied. - A fundoplication was found. The wrap appears loose. - No gross lesions in the duodenal bulb. Biopsied. Recommendations : - Written discharge instructions were provided to the patient. - The signs and symptoms of potential delayed complications were discussed with the patient. - Patient has a contact number available for emergencies. - Return to normal activities tomorrow. - Resume previous diet. - Continue present medications. - Await pathology results. - Repeat upper endoscopy in 1 year for surveillance based on pathology results. My findings are described in the full procedure note, which is enclosed. If I can be of further assistance, please feel free to contact me at . Sincerely, Bal Gonsalves, 03/26/2022 9:25:05 AM This report has been signed electronically.
== END 2022-03-26 10:05 | disposition home or self-care (01) ==
LOC: EN 07:37 → AC 07:39
PROVIDERS: PCP Family Medicine; Referring Provider Family Medicine; Visit Provider Internal Medicine Gastroenterology
PROC: 0DJ08ZZ Inspection of Upper Intestinal Tract, Via Natural or Artificial Opening Endoscopic (ICD-10-PCS; CPT 43235; principal; 2022-03-26 08:25)
DX: K29.80 Duodenitis without bleeding (principal); K22.70 Barrett's esophagus without dysplasia; F41.9 Anxiety disorder, unspecified; F32.A Depression, unspecified; Z87.891 Personal history of nicotine dependence; Z79.899 Other long term (current) drug therapy; Z80.0 Family history of malignant neoplasm of digestive organs
CPT/HCPCS: 43239; 88305; 88313; 88341; 88342; J7120; J2405

== ENCOUNTER → 2022-08-13 | Outpatient (CLI) | payer MEDICARE, OTHER, SELFPAY ==
[2022-08-13 12:42] LABS: Hematocrit 44.4 % (37-47); Hemoglobin 14.6 g/dL (12.0-15.0); Mean Corp Hgb Conc 32.9 g/dL (32-36); Mean Corpuscular Hgb 29.4 pg (27.0-32.0); Mean Corpuscular Volume 89.3 fL (81-99); Platelet Count 294 K/mm3 (150-450); RBC Distribution Width CV 12.5 % (11.6-14.6); Red Blood Count 4.97 M/mm3 (4.2-5.4); White Blood Count 6.1 K/mm3 (4.4-11.0)
[2022-08-13 13:54] LABS: Anion Gap 9 (5-15); BUN 17 mg/dL (7-18); BUN/Creat Ratio 18.7 RATIO (10-20); Calcium,Total 9.7 mg/dL (8.5-10.1); Chloride 107 mmol/L (98-107); Creatinine, Serum 0.91 mg/dL (0.55-1.02); EST Glomerular Filtration Rate 65 mL/min (>60); Est Glom Filt Rate - Afr Amer 78 mL/min (>60); Glucose 93 mg/dL (74-106); Potassium 3.9 mmol/L (3.5-5.1); Sodium Level 141 mmol/L (136-145)
== END | disposition home or self-care (01) ==
LOC: MFPLAB 11:03
PROVIDERS: PCP Family Medicine; Referring Provider Family Medicine; Visit Provider Otolaryngology
DX: Z01.812 Encounter for preprocedural laboratory examination (principal); Z01.818 Encounter for other preprocedural examination; Z01.810 Encounter for preprocedural cardiovascular examination
CPT/HCPCS: 36415; 80048; 85027

== ENCOUNTER → 2022-08-25 | Outpatient (CLI) | payer MEDICARE, OTHER, SELFPAY ==
--- NOTE | 2022-08-25 10:02 | EKG12_ITS ---
Test Reason : PRE OP Blood Pressure : / mmHG Vent. Rate : 074 BPM Atrial Rate : 074 BPM P-R Int : 160 ms QRS Dur : 068 ms QT Int : 382 ms P-R-T Axes : 031 033 061 degrees QTc Int : 424 ms Normal sinus rhythm Normal ECG Confirmed by EDISON DELVALLE, SAUL ([id number]), online content editor BARBARA HOROWITZ ([id number]) on 08/26/2022 7:56:19 AM Referred By: Ben Cadet Confirmed By:SAUL HOGAN MD
== END | disposition home or self-care (01) ==
PROVIDERS: PCP Family Medicine; Referring Provider Otolaryngology; Visit Provider Otolaryngology
DX: Z01.810 Encounter for preprocedural cardiovascular examination (principal)
CPT/HCPCS: 93005

== ENCOUNTER → 2022-09-16 | Outpatient (CLI) | payer MEDICARE, OTHER, SELFPAY ==
--- NOTE | 2022-09-15 11:52 | NASAL_PTH ---
PATIENT: BRANDEN KATE LOC: [facility] U#:[id number] AGE/SX: 72/F ROOM: RE09/16/[address]: Dr. Ben Cadet MD : 1950 BED: DIS: 09/16/2022 SPEC #: [id number] RECD: 09/16/22 15:19 STATUS: CARLOS REQ #: [id number] JASBIR: 09/15/22 11:[address]: Ben Cadet DEPT: SURGICAL PATHOLOGY RECD BY: Erika Johnson ENTERED: 09/17/22 09:30 SP TYPE: NASAL SPEC OTHR DR: Dr. Renate Pelayo MD [facility] Tissues: A - Nasal septum, NOS B - Nasal septum, NOS Procedures: Decalcification bone/plaque Surgery Specimen Level III HEADER OPERATION: Bilateral maxillary antrostomy, bilateral total ethmoidectomy PRE-OP DIAGNOSIS: Sensorineural hearing loss bilateral, chronic sinusitis TISSUE SUBMITTED: A ? Right nasal content, B ? Left nasal content MICROSCOPIC DIAGNOSIS A. Right nasal contents, curettings: Consistent with chronic sinusitis. Fragment of bone with no pathologic change. B. Left nasal contents, curettings: Consistent with chronic sinusitis. Fragment of bone with no pathologic change. AM:carole 09/22/2022 MICROSCOPIC DESCRIPTION Slides are reviewed. GROSS DESCRIPTION A - Received in fixative is one container labeled with the patient's name and designated right nasal contents. The specimen consists of multiple irregular and gritty fragments of light quinn tissue that in aggregate measure 2.5 x 1.5 x 0.2 cm. The specimen is totally submitted in one cassette after decalcification. B - Received in fixative is one container labeled with the patient's name and designated left nasal contents. The specimen consists of multiple irregular and gritty fragments of light quinn tissue that in aggregate measure 2.5 x 1.5 x 0.2 cm. The specimen is totally submitted in one cassette after decalcification. / AM:carole 09/17/2022 TC:3 CPT: 02267 x2, 26987 x2
== END | disposition home or self-care (01) ==
LOC: LABSPEC 16:04
PROVIDERS: PCP Family Medicine; Referring Provider Otolaryngology; Visit Provider Otolaryngology
DX: J32.9 Chronic sinusitis, unspecified (principal); H90.3 Sensorineural hearing loss, bilateral
CPT/HCPCS: 88304; 88311